=== PATIENT | female | born 1995 | race African-American/Black ===

== ENCOUNTER 2017-10-04 10:19 | Emergency (ER) | payer OTHER ==
[2017-10-04 11:10] LABS: #Lymphocytes 2.3 thou/uL (1.20-3.40); #Monocytes 0.4 thou/uL (0.11-0.59); #Neutrophils 4.5 thou/uL (1.40-6.50); %Basophils 0.5 % (0.0-1.0); %Eosinophils 0.6 % (0.0-10.0); %Lymphocytes 31.6 % (21.0-51.0); %Monocytes 5.9 % (0.0-10.0); %Neutrophils 61.4 % (42.0-75.0); Hemoglobin 13.1 g/dL (12.0-16.0); Mean Corpuscular HGB CONC 32.7 g/dL (32.0-36.0); Mean Corpuscular Volume 88.5 fL (78.0-98.0); Mean Platelet Volume 6.7 fL (7.4-10.4); Platelet Count 297 thou/uL (130-400); RBC Distribution Width 12.7 % (11.5-14.5); Red Blood Cell (RBC) Count 4.53 mill/uL (4.20-5.40); White Blood Cell (WBC) Count 7.3 thou/uL (4.8-10.8)
--- NOTE | 2017-10-08 10:58 | EKG ---
Test Reason : SYNCOPE Blood Pressure : / mmHG Vent. Rate : 079 BPM Atrial Rate : 079 BPM P-R Int : 150 ms QRS Dur : 086 ms QT Int : 358 ms P-R-T Axes : 077 069 033 degrees QTc Int : 410 ms Normal sinus rhythm Normal ECG Confirmed by LEATHA LAMAR DO ([id number]), editorial writer RHONDA BERGER ([id number]) on 10/08/2017 10:58:03 AM Referred By: SHARI Confirmed By:LEATHA LAMAR DO
== END 2017-10-04 12:17 | disposition home or self-care (01) ==
LOC: ERS 10:19
DX: R55 Syncope and collapse (principal)
CPT/HCPCS: 36415; 85025; 93005

== ENCOUNTER 2019-01-23 22:13 | Emergency (ER) | payer OTHER, SELFPAY | END 2019-01-23 23:14 | disposition home or self-care (01) | LOC: ERS 22:13 | DX: R59.9 Enlarged lymph nodes, unspecified (principal); F41.9 Anxiety disorder, unspecified; F17.210 Nicotine dependence, cigarettes, uncomplicated | CPT/HCPCS: 99283 ==

== ENCOUNTER 2019-01-29 07:26 | Inpatient (IN) | payer OTHER ==
[2019-01-29 08:15] LABS: #Basophils 0.1 thou/uL (0.0-0.2); #Lymphocytes 1.6 thou/uL (1.20-3.40); #Monocytes 1.3 thou/uL (0.11-0.59); #Neutrophils 6.9 thou/uL (1.40-6.50); %Basophils 0.5 % (0.0-1.0); %Eosinophils 0.4 % (0.0-10.0); %Lymphocytes 16.1 % (21.0-51.0); Hemoglobin 15.6 g/dL (12.0-16.0); Mean Corpuscular HGB CONC 31.2 g/dL (32.0-36.0); Mean Corpuscular Hemoglobin 27.4 pg (27.0-31.0); Mean Platelet Volume 7.2 fL (7.4-10.4); Platelet Count 264 thou/uL (130-400); RBC Distribution Width 14.7 % (11.5-14.5); Red Blood Cell (RBC) Count 5.67 mill/uL (4.20-5.40); White Blood Cell (WBC) Count 9.8 thou/uL (4.8-10.8)
[2019-01-29 08:27] LABS: ALT (SGPT) 47 U/L (8-55); AST (SGOT) 78 U/L (5-34); Albumin 4.9 g/dL (3.5-5.0); Alkaline Phosphatase 61 U/L (40-110); Anion Gap 22 mmol/L (10-20); BUN (Urea Nitrogen) 13 mg/dL (7.0-18.7); Bilirubin, Total 0.9 mg/dL (0.2-1.2); Calc. Creatinine Clearance 0 mL/min (70-130); Calcium 10.4 mg/dL (7.8-10.44); Carbon Dioxide 15 mmol/L (22-29); Chloride 99 mmol/L (98-107); Estimated GFR-MDRD 51; Globulin 4.1 g/dL (2.4-3.5); Glucose 91 mg/dL (70-105); Potassium 4.3 mmol/L (3.5-5.1); Sodium 132 mmol/L (136-145)
[2019-01-29 08:40] LABS: Lipase 2846 U/L (8-78)
[2019-01-29] MEDS ORDERED: Morphine 2 MG/ML SYRINGE ONE (08:50)
[2019-01-29] MEDS ORDERED: Ondansetron PF 4 MG/2 ML Vial ONE ×2 (08:51→15:08)
[2019-01-29] MEDS ORDERED: Sodium Chloride 0.9% 1,000 ML IV SCH (09:00)
[2019-01-29] MEDS ORDERED: Morphine 2 MG/ML SYRINGE SLOW IVP SCH (09:00)
[2019-01-29] MEDS ORDERED: Ondansetron PF 4 MG/2 ML Vial SLOW IVP SCH (09:00)
--- NOTE | 2019-01-29 09:24 | ULT ---
Sonogram right upper quadrant HISTORY: Right upper quadrant pain. FINDINGS: Gallbladder has a normal appearance without evidence of stones. Common duct is 0.2 cm. Live r unremarkable without focal mass or intrahepatic biliary dilatation. No free fluid. IMPRESSION: Normal exam.
[2019-01-29 10:13] LABS: BHCG - Serum Negative (NEGATIVE); Pregs Control Background? CLEAR/WHITE (CLR/WHITE); Pregs Control Bar Appear? YES (CONTROL BAR)
[2019-01-29] MEDS ORDERED: Iopamidol-370 76% 500 ML 1 ML ONE (11:04)
--- NOTE | 2019-01-29 11:05 | CT ---
CT Abdomen Pelvis W Con History: Back pain shortness of breath and vomiting Comparison: Gallbladder ultrasound same day Findings: Lung bases are clear. No pericardial effusion. There is acute edematous pancreatitis with interstitial edema, edema surrounding the pancreatic tail body uncinate process and head. No abnormal nonenhancing focus. No fluid collection. There are mildly prominent left gastric lymph nodes. Likely mild hyperemia within the peripancreatic venous ple xus and much less likely foci of hemorrhage anterior to the IVC. There is hyperemia of the perisplenic and perigastric venous plexus which also may be sequelae of the timing of contrast as the re is extensive contrast in the hepatic veins. No hydronephrosis. No pericholecystic edema. Moderate free fluid in the pelvis. No dilated loops of large or small bowel. The appendix is visualized and is normal. Impression: Uncomplicated acute edematous pancreatitis without necrosis.
[2019-01-29] MEDS ORDERED: Morphine 4 MG/ML VIAL ONE ×2 (11:29→15:06)
[2019-01-29 11:49] LABS: Bilirubin 1+ (Negative); Blood, Urine Negative (Negative); Clarity Clear (Clear); Glucose, Urine (Dipstick) Normal (Negative); Leukocyte Negative Leu/uL (Negative); Nitrite Negative (Negative); Protein, Urine (Dipstick) 300 mg/dL (Neg-Trace)
[2019-01-29 12:06] LABS: Bacteria/HPF 1+ HPF (None Seen)
[2019-01-29] MEDS ORDERED: Acetaminophen 325 MG TAB PO PRN (13:54)
[2019-01-29] MEDS ORDERED: Ondansetron PF 4 MG/2 ML Vial IVP PRN (13:54)
[2019-01-29] MEDS ORDERED: Morphine 2 MG/ML SYRINGE SLOW IVP PRN (13:55)
[2019-01-29] MEDS: Sodium Chloride 0.9% 1,000 ML IV SCH ×2 (15:30→19:51)
[2019-01-29 16:49] VITALS: BMI 23.9
--- NOTE | 2019-01-29 18:08 | HP ---
REASON FOR ADMISSION: Acute pancreatitis. HISTORY OF PRESENTING ILLNESS: The patient gives history of severe nausea and vomiting from last 2 days. She also had abdominal pain, which was bandlike in the upper quadrants with radiation to the back from last 3 days. This pain was constant, 6/10 to 7/10 in intensity. Her last bowel movement was on Tuesday morning, which appeared normal. She also developed shortness of breath on exertion from yesterday. No fever. She has had loss of appetite and has not been eating or drinking from last 24 hours now. No prior history of pancreatic issue. No history of sickle cell anemia or trait. No history of dyslipidemia. PAST MEDICAL AND SURGICAL HISTORY: 1. History of anemia due to childbirth. 2. x2. 3. Tubal ligation. 4. Tonsillectomy. CURRENT MEDICATIONS: None. ALLERGIES: NO KNOWN DRUG ALLERGIES. PERSONAL HISTORY: Smokes occasional cigarettes, likely 1 cigarette every 2 to 3 days if she is with her friends. Drinks a mixed drinks of 3 to 4 on a weekend once a month with her friends. Does not abuse drugs. Has a 2-year-old and 5-year- old child. FAMILY HISTORY: Mother is living and has history of hypertension. She does not know much about her father. Has a younger brother who is healthy. No history of pancreatic cancer in the family. CODE STATUS: Full. REVIEW OF SYSTEMS: CONSTITUTIONAL: Negative for weight loss or gain, ability to conduct usual activities. SKIN: Negative for rash, itching. EYES: Negative for double vision, pain. ENT/MOUTH: Negative for nose bleeding, neck stiffness, pain, tenderness. CARDIOVASCULAR: Negative for palpitations, dyspnea on exertion, orthopnea. RESPIRATORY: Negative for wheezing, cough, hemoptysis, fever or night sweats. GASTROINTESTINAL: Negative for heartburn, constipation, or diarrhea. GENITOURINARY: Negative for urgency, frequency, dysuria, nocturia. MUSCULOSKELETAL: Negative for pain, swelling. NEUROLOGIC/PSYCHIATRIC: Negative for anxiety, depression. ALLERGY/IMMUNOLOGIC: Negative for skin rash, bleeding tendency. PHYSICAL EXAMINATION: GENERAL: The patient is a 23-year-old female, who is currently not in any acute distress. VITAL SIGNS: Blood pressure 150/86, pulse 140 per minute, respiratory rate 22 per minute, temperature 98.4 degrees Fahrenheit, and saturating 99% on room air. NECK: Supple. No elevated JVD. HEENT: Eyes; extraocular muscles intact. Pupils reacting to light. Oral cavity, mucous membranes are dry. No exudates or congestion. CARDIOVASCULAR SYSTEM: S1 and S2 heard, regular rhythm. RESPIRATORY SYSTEM: Air entry 2+ bilateral. No rales or rhonchi. ABDOMEN: Soft. There is mild tenderness in the upper quadrants. No rigidity or guarding. Bowel sounds are heard. EXTREMITIES: No peripheral edema or calf tenderness. VASCULAR SYSTEM: Peripheral pulses 1+ bilateral. No ischemic ulcerations or gangrene. CENTRAL NERVOUS SYSTEM: No gross focal deficits noted. The patient is alert, awake, oriented well. PSYCHIATRIC SYSTEM: The patient's mood is euthymic. No hallucinations or delusions. LABORATORY DATA: CT of the abdomen and pelvis with contrast done showed uncomplicated acute edematous pancreatitis without necrosis. No hydronephrosis or pericholecystic edema was seen. Moderate free fluid is seen in the pelvis. No dilated loops of large or small bowel seen. Appendix was normal. Ultrasound of right upper quadrant done, showed gallbladder to have normal appearance without evidence of stones, common duct was 0.2 cm. Liver was unremarkable without mass or intrahepatic biliary dilatation. Serum test was negative. Lipase 2846, LDH 243, CRP 1.47, albumin 4.9, triglycerides were 81, sodium 132, serum bicarb 15, BUN 13, creatinine 1.5, serum glucose 91, total bilirubin 0.9, AST 78, ALT 47, and alkaline phosphatase 61. White count of 9.8, hemoglobin and hematocrit 15 and 49, platelet count 264, MCV is 88 with 70% neutrophils. EKG done shows sinus tach at 109 beats per minute. CLINICAL IMPRESSION AND PLAN: The patient will be admitted to medical floor for acute pancreatitis with unclear etiology at present. She is severely dehydrated and the patient will be placed on normal saline at 200 mL per hour. She has received 30 ml/kg of IV fluid in the ER. Morphine p.r.n. for pain. We will consult Dr. Giuseppe Marques, who is on-call for Gastroenterology. JULI with reflex will be done as well in view of cryptic pancreatitis. We will continue to closely monitor her on medical floor. Job ID: [id number] [facility]
[2019-01-29] MEDS: Famotidine 20 MG TAB PO SCH (19:51)
--- NOTE | 2019-01-29 21:34 | CON ---
DATE OF CONSULTATION: 01/29/2019 REQUESTING PHYSICIAN: Dr. Camarillo. REASON FOR CONSULTATION: Acute pancreatitis. HISTORY OF PRESENT ILLNESS: Solange Mendoza is a very pleasant 23-year-old woman with no significant past medical history. She reports that she will drink alcohol socially on occasion. About every other week, she will have several alcoholic beverages. Her last alcohol intake was 5 days ago when she had 3 or 4 mixed beverages. Couple of days after that she started having some shortness of breath and sharp pain in both the epigastrium and at the back. This quickly progressed to involve nausea and vomiting. Over the past several days with any oral intake of food or liquid, she has had nonbloody emesis. The pain has persisted. There has been no fever. Her bowel movements have been normal. She has never had symptoms like this before. She presented to the emergency department today and was found to have elevation in lipase to [address] of the abdomen, which demonstrated acute edematous pancreatitis. The patient reports no prior history or family history of pancreatitis. She has never had any issues with the gallbladder. Abdominal ultrasound imaging did not show any gallstones. The patient is being admitted to the hospital for treatment of pancreatitis. REVIEW OF SYSTEMS: Full review of systems including constitutional, head, eyes, ears, nose, throat, GI, , cardiovascular, respiratory, musculoskeletal, neurologic systems is negative except as noted in the HPI. PAST MEDICAL HISTORY: x2, tonsillectomy. ALLERGIES: NO KNOWN DRUG ALLERGIES. OUTPATIENT MEDICATIONS: None. FAMILY HISTORY: Negative for pancreatitis. SOCIAL HISTORY: The patient will occasionally smoke a cigarette maybe every other day. She will have a few alcoholic beverages maybe every other weekend. Last alcohol intake was 5 days ago when she had 3 or 4 mixed drinks. No current drug abuse. PHYSICAL EXAMINATION: VITAL SIGNS: Blood pressure 121/93, pulse 100, 100% oxygen saturation on room air. GENERAL: A 23-year-old woman, sitting up in bed comfortably, in no acute distress. SKIN: No jaundice, no rashes were palpable. EYES: No scleral icterus. Extraocular movements intact. ENT: Mucous membranes moist. No oral lesions. LYMPH: No submandibular supraclavicular lymphadenopathy. Thyroid nontender to palpation. HEART: Regular borderline tachycardia. No murmur appreciated. LUNGS: Clear to auscultation bilaterally. ABDOMEN: Nondistended. Bowel sounds are hypoactive, but present. The abdomen is soft tender to palpation in the epigastrium. No guarding or rebound tenderness. EXTREMITIES: No peripheral edema. VESSELS: Radial pulses 2+ bilaterally. NEUROLOGIC: Cranial nerves 2-12 intact bilaterally. No focal deficits. LABORATORY STUDIES: WBC 9.8, hemoglobin 15.6, hematocrit 49.9, platelets 264. Sodium 132, potassium 4.3, BUN 13, creatinine 1.52. CRP is pending. Total bilirubin 0.9, alkaline phosphatase 61, AST 78, ALT 47, albumin 4.9. Urinalysis shows 7 to 10 wbc's. Lipase is elevated to 2846, triglycerides normal at 81. Serum test is negative. IMAGING STUDIES: Abdominal ultrasound is a normal exam. Gallbladder appears normal with no evidence of stones. CBD is normal at [address] of the abdomen and pelvis demonstrates uncomplicated acute edematous pancreatitis. There is no evidence of necrosis. No fluid collection. No bowel dilation. No pericholecystic edema. No hydronephrosis. ASSESSMENT/PLAN: 1. Acute pancreatitis, likely secondary to alcohol. 2. Nausea and vomiting, secondary to pancreatitis. 3. Epigastric pain, secondary to pancreatitis. The patient's presentation is consistent with acute uncomplicated pancreatitis. This is likely secondary to alcohol. There is no evidence of biliary etiology, triglycerides are normal. She does not take any medications that would be a culprit. I agree with supportive care as already planned, antiemetics and analgesics as needed, IV fluids at 200 mL/hour overnight. We would trend CBC and CMP tomorrow. I would keep her n.p.o. for now. I discussed with the patient. She is going to need to avoid alcohol going forward. Thank you for this consultation. Please call anytime with questions or concerns. Job ID: [id number]
[2019-01-30] MEDS: Sodium Chloride 0.9% 1,000 ML IV SCH ×5 (00:07→21:36)
[2019-01-30 06:26] LABS: #Basophils 0.1 thou/uL (0.0-0.2); #Eosinphils 0.1 thou/uL (0.0-0.7); #Lymphocytes 1.2 thou/uL (1.20-3.40); #Monocytes 0.8 thou/uL (0.11-0.59); #Neutrophils 3.8 thou/uL (1.40-6.50); %Basophils 0.9 % (0.0-1.0); %Eosinophils 1.3 % (0.0-10.0); %Lymphocytes 19.7 % (21.0-51.0); %Monocytes 13.8 % (0.0-10.0); %Neutrophils 64.3 % (42.0-75.0); Hemoglobin 11.2 g/dL (12.0-16.0); Mean Corpuscular HGB CONC 31.4 g/dL (32.0-36.0); Mean Corpuscular Hemoglobin 27.6 pg (27.0-31.0); Mean Corpuscular Volume 88.1 fL (78.0-98.0); Mean Platelet Volume 7.1 fL (7.4-10.4); Platelet Count 183 thou/uL (130-400); RBC Distribution Width 14.6 % (11.5-14.5); Red Blood Cell (RBC) Count 4.06 mill/uL (4.20-5.40); White Blood Cell (WBC) Count 5.9 thou/uL (4.8-10.8)
[2019-01-30 07:10] LABS: ALT (SGPT) 25 U/L (8-55); AST (SGOT) 41 U/L (5-34); Albumin 3.2 g/dL (3.5-5.0); Alkaline Phosphatase 38 U/L (40-110); Anion Gap 15 mmol/L (10-20); BUN (Urea Nitrogen) 6 mg/dL (7.0-18.7); Bilirubin, Total 0.7 mg/dL (0.2-1.2); Calc. Creatinine Clearance 121 mL/min (70-130); Calcium 8.3 mg/dL (7.8-10.44); Carbon Dioxide 17 mmol/L (22-29); Cardiac Risk 3.7 (Less than 4.5); Chloride 109 mmol/L (98-107); Cholesterol 148 mg/dl (< 200 Desired); Estimated GFR-MDRD Greater than 90; Globulin 2.7 g/dL (2.4-3.5); Glucose 67 mg/dL (70-105); HDL Cholesterol 40 mg/dL (>60 Neg Risk); LDL Cholesterol, Calculated 94 mg/dL; Potassium 3.8 mmol/L (3.5-5.1); Protein, Total 5.9 g/dL (6.0-8.3); Sodium 137 mmol/L (136-145); Triglycerides 69 mg/dL (Less than 150)
[2019-01-30 07:12] LABS: Lipase 2685 U/L (8-78)
[2019-01-30] MEDS: HYDROcodone/Acetaminophen 5/325 mg Tablet PO PRN ×3 (07:19→21:35)
[2019-01-30] MEDS: Enoxaparin Sodium 40 MG/0.4 ML SYRINGE SC SCH (08:05)
[2019-01-30] MEDS: Famotidine 20 MG TAB PO SCH ×2 (08:05→20:09)
[2019-01-30 11:16] LABS: ANA Symphony (Qualitative) Negative (Negative); ANA Symphony (Quantitative) 0.1 Ratio (< 0.7 Negative); dsDNA IgG Antibody Less than 0.5 IU/mL (<10 Negative)
--- NOTE | 2019-01-30 14:19 | PRG ---
DATE OF SERVICE: 01/30/2019 SUBJECTIVE: The patient is feeling a little bit better today. Epigastric pain persists. She did require morphine and then hydrocodone overnight. There has been no nausea or vomiting. Not requiring any antiemetics. She has good urine output. She has been up and ambulating some today. OBJECTIVE: VITAL SIGNS: Temperature 98.6, pulse 72, blood pressure 126/87, and 100% oxygen saturation on room air. GENERAL: No acute distress. HEART: Regular rate and rhythm. LUNGS: Clear to auscultation bilaterally. ABDOMEN: Bowel sounds are hypoactive, but present. Soft and tender to palpation in the epigastrium, but no guarding or rebound tenderness. EXTREMITIES: No peripheral edema. LABORATORY STUDIES: JULI is negative. Sodium 137, potassium 3.8, BUN 6, creatinine down from 1.52 to 0.74, glucose 67, total bilirubin 0.7, alkaline phosphatase 38, AST down to 41, and ALT 25. CRP was 1.47. Triglycerides 69. Lipase 2685. WBC is 5.9, hemoglobin is 11.2, and hematocrit down from 49.9 to 35.8. ASSESSMENT AND PLAN: 1. Acute pancreatitis, probably secondary to alcohol. 2. Nausea and vomiting, improved. 3. Epigastric pain, improving. 4. Dehydration, improved. I discussed with the patient that her lab parameters are all favorable. She is being adequately resuscitated. Given her continued pain medication requirements, I would keep her n.p.o. for the remainder of the day, see how she does overnight. If she is doing well, pain requirements decreased, and feeling hungry, could hopefully try to introduce clear liquids tomorrow. Job ID: [id number]
--- NOTE | 2019-01-30 16:00 | PDOC.HOSPP ---
- Subjective Encounter Date: 01/30/19 Encounter Time: 09:00 Subjective: abdominal pain is better, no nausea this am is amb in room, no sob - Objective Vital Signs & Weight: Vital Signs (12 hours) Temp Pulse Resp BP Pulse Ox 01/30/19 11:27 98.6 F 72 16 126/87 100 01/30/19 07:15 98.6 F 81 20 130/82 99 01/30/19 03:59 98.1 F 79 19 115/79 99 Weight Admit Weight 144 lb Weight 144 lb Result Diagrams: 01/30/19 05:50 01/30/19 05:50 Hospitalist ROS - Medication Medications: Active Medications Generic Name Dose Route Start Last Admin Trade Name Freq PRN Reason Stop Dose Admin Hydrocodone Bitart/Acetaminophen 1 tab 01/29/19 13:54 01/30/19 07:19 [place] 5/325 PO 1 tab Q4H PRN Administration Moderate Pain (4-6) Enoxaparin Sodium 40 mg 01/30/19 09:00 01/30/19 08:05 Lovenox SC 40 mg 0900 HEIKE Administration Famotidine 20 mg 01/29/19 21:00 01/30/19 08:05 Pepcid PO 20 mg BID HEIKE Administration Sodium Chloride 1,000 mls @ 200 mls/hr 01/29/19 14:00 01/30/19 11:16 Normal Saline 0.9% IV 1,000 mls .Q5H HEIKE Administration Morphine Sulfate 2 mg 01/29/19 13:55 01/30/19 00:06 Morphine SLOW IVP 2 mg Q4H PRN Administration Severe Pain (7-10) - Exam General Appearance: awake alert Eye: PERRL, anicteric sclera ENT: no oropharyngeal lesions, moist mucosa Neck: supple, no JVD Heart: RRR, no murmur Respiratory: no wheezes, no rales Gastrointestinal: soft, non-distended, normal bowel sounds, no guarding, no rigidity Extremities: no cyanosis, no edema Neurological: cranial nerve grossly intact, no focal deficits Psychiatric: normal affect, A&O x 3 Hosp A/P (1) Acute pancreatitis Code(s): K85.90 - ACUTE PANCREATITIS WITHOUT NECROSIS OR INFECTION, UNSP Status: Acute Qualifiers: Pancreatitis type: unspecified pancreatitis type (2) Chronic anemia Code(s): D64.9 - ANEMIA, UNSPECIFIED Status: Chronic (3) Metabolic acidosis Code(s): E87.2 - ACIDOSIS Status: Acute - Plan continue iv hydration morphine, narco prn jesus is -ve, lipid profile is normal is npo, diet per GI advice hemostable has mild metabolic acidosis
[2019-01-30] MEDS: Ciprofloxacin 500 MG TAB PO SCH (20:09)
[2019-01-31] MEDS: Sodium Chloride 0.9% 1,000 ML IV SCH ×2 (02:40→06:37)
[2019-01-31] MEDS: Ciprofloxacin 500 MG TAB PO SCH ×2 (06:36→20:34)
[2019-01-31 06:44] LABS: #Basophils 0.1 thou/uL (0.0-0.2); #Eosinphils 0.1 thou/uL (0.0-0.7); #Lymphocytes 1.5 thou/uL (1.20-3.40); #Monocytes 0.5 thou/uL (0.11-0.59); #Neutrophils 3.9 thou/uL (1.40-6.50); %Basophils 1.1 % (0.0-1.0); %Eosinophils 0.8 % (0.0-10.0); %Lymphocytes 25.2 % (21.0-51.0); %Neutrophils 64.9 % (42.0-75.0); Hemoglobin 11.1 g/dL (12.0-16.0); Mean Corpuscular HGB CONC 31.6 g/dL (32.0-36.0); Mean Corpuscular Hemoglobin 27.8 pg (27.0-31.0); Mean Platelet Volume 6.8 fL (7.4-10.4); Platelet Count 186 thou/uL (130-400); RBC Distribution Width 14.5 % (11.5-14.5); Red Blood Cell (RBC) Count 4.01 mill/uL (4.20-5.40); White Blood Cell (WBC) Count 6.1 thou/uL (4.8-10.8)
[2019-01-31 07:04] LABS: ALT (SGPT) 26 U/L (8-55); AST (SGOT) 44 U/L (5-34); Albumin 3.6 g/dL (3.5-5.0); Alkaline Phosphatase 40 U/L (40-110); Anion Gap 16 mmol/L (10-20); BUN (Urea Nitrogen) Less than 4 mg/dL (7.0-18.7); Bilirubin, Total 0.8 mg/dL (0.2-1.2); Calc. Creatinine Clearance 147 mL/min (70-130); Calcium 8.4 mg/dL (7.8-10.44); Carbon Dioxide 16 mmol/L (22-29); Chloride 105 mmol/L (98-107); Estimated GFR-MDRD Greater than 90; Globulin 2.9 g/dL (2.4-3.5); Protein, Total 6.5 g/dL (6.0-8.3); Sodium 134 mmol/L (136-145)
[2019-01-31 07:11] LABS: Glucose 54 mg/dL (70-105); Potassium 2.9 mmol/L (3.5-5.1)
[2019-01-31] MEDS: Famotidine 20 MG TAB PO SCH ×2 (08:17→20:34)
[2019-01-31] MEDS: Enoxaparin Sodium 40 MG/0.4 ML SYRINGE SC SCH (08:17)
[2019-01-31] MEDS: Dextrose 5 % And 0.9 % NaCl 1,000 ML IV SCH ×4 (08:17→23:10)
[2019-01-31] MEDS: Potassium Chloride 20 MEQ TAB PO SCH ×3 (09:52→20:34)
--- NOTE | 2019-01-31 13:35 | PDOC.HOSPP ---
- Subjective Encounter Date: 01/31/19 Encounter Time: 09:15 Subjective: no abd pain or nausea feels beter - Objective Vital Signs & Weight: Vital Signs (12 hours) Temp Pulse Resp BP Pulse Ox 01/31/19 11:46 98.7 F 80 17 129/88 99 01/31/19 07:39 100 01/31/19 07:12 98.8 F 76 17 129/87 100 01/31/19 03:56 98.6 F 83 19 138/89 99 Weight Admit Weight 144 lb Weight 144 lb I&O: 01/30/19 01/31/19 02/01/19 06:59 06:59 06:59 Intake Total 2450 Balance 2450 Result Diagrams: 01/31/19 06:24 01/31/19 06:24 Hospitalist ROS - Medication Medications: Active Medications Generic Name Dose Route Start Last Admin Trade Name Freq PRN Reason Stop Dose Admin Hydrocodone Bitart/Acetaminophen 1 tab 01/29/19 13:54 01/30/19 21:35 [place] 5/325 PO 1 tab Q4H PRN Administration Moderate Pain (4-6) Ciprofloxacin 500 mg 01/30/19 20:00 01/31/19 06:36 Cipro PO 500 mg 0600,2000 HEIKE Administration Enoxaparin Sodium 40 mg 01/30/19 09:00 01/31/19 08:17 Lovenox SC 40 mg 0900 HEIKE Administration Famotidine 20 mg 01/29/19 21:00 01/31/19 08:17 Pepcid PO 20 mg BID HEIKE Administration Dextrose/Sodium Chloride 1,000 mls @ 200 mls/hr 01/31/19 07:45 01/31/19 13:21 D5 0.9% Ns IV 1,000 mls .Q5H HEIKE Administration Morphine Sulfate 2 mg 01/29/19 13:55 01/30/19 00:06 Morphine SLOW IVP 2 mg Q4H PRN Administration Severe Pain (7-10) Potassium Chloride 40 meq 01/31/19 09:30 01/31/19 09:52 K-Dur PO 02/01/19 15:31 40 meq Q6H HEIKE Administration - Exam General Appearance: awake alert Eye: PERRL, anicteric sclera ENT: no oropharyngeal lesions, moist mucosa Neck: supple, no JVD Heart: RRR, no murmur Respiratory: no wheezes, no rales Gastrointestinal: soft, non-tender, non-distended, normal bowel sounds, no guarding, no rigidity Extremities: no cyanosis, no edema Neurological: cranial nerve grossly intact, no focal deficits Psychiatric: normal affect, A&O x 3 Hosp A/P (1) Acute pancreatitis Code(s): K85.90 - ACUTE PANCREATITIS WITHOUT NECROSIS OR INFECTION, UNSP Status: Acute Qualifiers: Pancreatitis type: unspecified pancreatitis type (2) Chronic anemia Code(s): D64.9 - ANEMIA, UNSPECIFIED Status: Chronic (3) Metabolic acidosis Code(s): E87.2 - ACIDOSIS Status: Acute (4) Hypokalemia Code(s): E87.6 - HYPOKALEMIA Status: Acute (5) Hypomagnesemia Code(s): E83.42 - HYPOMAGNESEMIA Status: Acute - Plan continue iv hydration with D5NS due to hypoglycemia this am morphine, narco prn jesus is -ve, lipid profile is normal full liq diet hemostable has mild metabolic acidosis correct electrolytes
--- NOTE | 2019-01-31 18:09 | PRG ---
DATE OF SERVICE: 01/31/2019 SUBJECTIVE: This patient is feeling a lot better today. Abdominal discomfort is nearly resolved. She still has a bit of epigastric fullness, but she is tolerating her full liquid diet today. She has had apple juice and Jell-O with no problems. No nausea or vomiting. She has been passing gas. She has not required any analgesics today. Several electrolyte abnormalities are being replaced. OBJECTIVE: VITAL SIGNS: Temperature 98.6, pulse 91, blood pressure 126/86, and 98% oxygen saturation on room air. GENERAL: No acute distress. HEART: Regular rate and rhythm. LUNGS: Clear to auscultation bilaterally. ABDOMEN: Nondistended. Bowel sounds are present throughout all 4 quadrants. Soft and nontender to palpation. EXTREMITIES: No peripheral edema. LABORATORY STUDIES: WBC 6.1, hemoglobin 11.1, platelets 186. Sodium 134, potassium 2.9, BUN less than 4, creatinine 0.61, glucose 5.4, magnesium 1.3. Total bilirubin 0.8, alkaline phosphatase 40, AST 44, and ALT 26. ASSESSMENT AND PLAN: 1. Acute pancreatitis, likely secondary to alcohol, clinically improving. 2. Nausea and vomiting, resolved. 3. Epigastric pain, improved. 4. Dehydration, resolved. Clinically, her pancreatitis is resolving. She is doing well on a full liquid diet today. I would advise that if she has a good night tonight, she will be given a regular diet for breakfast. If she does well with this, then I see no contraindication to hospital discharge tomorrow. I have advised her to just avoid alcohol going forward. GI will sign off, but please call back anytime with questions or concerns. Job ID: [id number]
[2019-01-31] MEDS: Magnesium Oxide 400 MG TAB PO SCH (20:34)
[2019-01-31] MEDS: HYDROcodone/Acetaminophen 5/325 mg Tablet PO PRN (20:36)
[2019-02-01] MEDS: Potassium Chloride 20 MEQ TAB PO SCH ×3 (03:58→12:13)
[2019-02-01] MEDS: Dextrose 5 % And 0.9 % NaCl 1,000 ML IV SCH ×2 (03:59→08:56)
[2019-02-01] MEDS: Ciprofloxacin 500 MG TAB PO SCH ×2 (05:45→20:50)
[2019-02-01 06:36] LABS: #Lymphocytes 1.6 thou/uL (1.20-3.40); #Monocytes 0.6 thou/uL (0.11-0.59); #Neutrophils 2.9 thou/uL (1.40-6.50); %Basophils 0.6 % (0.0-1.0); %Eosinophils 0.9 % (0.0-10.0); %Lymphocytes 30.5 % (21.0-51.0); Hemoglobin 11.3 g/dL (12.0-16.0); Mean Corpuscular HGB CONC 32.5 g/dL (32.0-36.0); Mean Corpuscular Volume 86.3 fL (78.0-98.0); Mean Platelet Volume 6.7 fL (7.4-10.4); Platelet Count 223 thou/uL (130-400); RBC Distribution Width 14.5 % (11.5-14.5); Red Blood Cell (RBC) Count 4.03 mill/uL (4.20-5.40); White Blood Cell (WBC) Count 5.1 thou/uL (4.8-10.8)
[2019-02-01 07:21] LABS: ALT (SGPT) 25 U/L (8-55); AST (SGOT) 43 U/L (5-34); Albumin 3.6 g/dL (3.5-5.0); Alkaline Phosphatase 40 U/L (40-110); Anion Gap 10 mmol/L (10-20); BUN (Urea Nitrogen) Less than 4 mg/dL (7.0-18.7); Bilirubin, Total 0.5 mg/dL (0.2-1.2); Calc. Creatinine Clearance 149 mL/min (70-130); Calcium 8.7 mg/dL (7.8-10.44); Carbon Dioxide 22 mmol/L (22-29); Chloride 105 mmol/L (98-107); Estimated GFR-MDRD Greater than 90; Globulin 2.9 g/dL (2.4-3.5); Glucose 115 mg/dL (70-105); Magnesium 1.2 mg/dL (1.6-2.6); Potassium 3.7 mmol/L (3.5-5.1); Protein, Total 6.5 g/dL (6.0-8.3); Sodium 133 mmol/L (136-145)
[2019-02-01] MEDS: Famotidine 20 MG TAB PO SCH ×2 (08:47→20:50)
[2019-02-01] MEDS: Magnesium Oxide 400 MG TAB PO SCH ×2 (08:47→20:50)
[2019-02-01] MEDS: Enoxaparin Sodium 40 MG/0.4 ML SYRINGE SC SCH (08:48)
--- NOTE | 2019-02-01 12:03 | PDOC.HOSPP ---
- Subjective Encounter Date: 02/01/19 Encounter Time: 08:50 Subjective: no abd pain or nausea is tolerating solid diet no bm yet - Objective Vital Signs & Weight: Vital Signs (12 hours) Temp Pulse Resp BP Pulse Ox 02/01/19 07:23 98.3 F 81 17 127/91 H 100 Weight Admit Weight 144 lb Weight 144 lb I&O: 01/31/19 02/01/19 02/02/19 06:59 06:59 06:59 Intake Total 2450 3394 Balance 2450 3394 Result Diagrams: 02/01/19 06:28 02/01/19 06:28 Hospitalist ROS - Medication Medications: Active Medications Generic Name Dose Route Start Last Admin Trade Name Freq PRN Reason Stop Dose Admin Hydrocodone Bitart/Acetaminophen 1 tab 01/29/19 13:54 01/31/19 20:36 [place] 5/325 PO 1 tab Q4H PRN Administration Moderate Pain (4-6) Ciprofloxacin 500 mg 01/30/19 20:00 02/01/19 05:45 Cipro PO 500 mg 06,1999 HEIKE Administration Enoxaparin Sodium 40 mg 01/30/19 09:00 02/01/19 08:48 Lovenox SC 40 mg 0900 HEIKE Administration Famotidine 20 mg 01/29/19 21:00 02/01/19 08:47 Pepcid PO 20 mg BID HEIKE Administration Magnesium Oxide 400 mg 01/31/19 21:00 02/01/19 08:47 Magnesium Oxide PO 400 mg BID HEIKE Administration Morphine Sulfate 2 mg 01/29/19 13:55 01/30/19 00:06 Morphine SLOW IVP 2 mg Q4H PRN Administration Severe Pain (7-10) Potassium Chloride 40 meq 01/31/19 09:30 02/01/19 08:46 K-Dur PO 02/01/19 15:31 40 meq Q6H HEIKE Administration - Exam General Appearance: awake alert Eye: PERRL, anicteric sclera ENT: no oropharyngeal lesions, moist mucosa Neck: supple, no JVD Heart: RRR, no murmur Respiratory: no wheezes, no rales Gastrointestinal: soft, non-tender, non-distended, normal bowel sounds Extremities: no cyanosis, no edema Neurological: cranial nerve grossly intact, no focal deficits Psychiatric: normal affect, A&O x 3 Hosp A/P (1) Acute pancreatitis Code(s): K85.90 - ACUTE PANCREATITIS WITHOUT NECROSIS OR INFECTION, UNSP Status: Acute Qualifiers: Pancreatitis type: unspecified pancreatitis type (2) Chronic anemia Code(s): D64.9 - ANEMIA, UNSPECIFIED Status: Chronic (3) Metabolic acidosis Code(s): E87.2 - ACIDOSIS Status: Resolved (4) Hypokalemia Code(s): E87.6 - HYPOKALEMIA Status: Resolved (5) Hypomagnesemia Code(s): E83.42 - HYPOMAGNESEMIA Status: Resolved - Plan continue iv hydration, has persistent elevation in lipase? morphine, narco prn jesus is -ve, lipid profile is normal full liq diet hemostable mild metabolic acidosis to ambulate in hallway
[2019-02-01] MEDS: Sodium Chloride 0.9% 1,000 ML IV SCH ×2 (12:18→22:34)
[2019-02-02] MEDS: Ciprofloxacin 500 MG TAB PO SCH (05:46)
[2019-02-02 07:59] VITALS: BP 141/90; TEMP 98.1
[2019-02-02] MEDS: Famotidine 20 MG TAB PO SCH (09:50)
[2019-02-02] MEDS: Enoxaparin Sodium 40 MG/0.4 ML SYRINGE SC SCH (09:50)
[2019-02-02] MEDS: Magnesium Oxide 400 MG TAB PO SCH (09:51)
[2019-02-02] MEDS: Sodium Chloride 0.9% 1,000 ML IV SCH (09:54)
--- NOTE | 2019-02-02 15:31 | DIS ---
DATE OF ADMISSION: 01/29/2019 DATE OF DISCHARGE: 02/02/2019 DISCHARGE DISPOSITION: Home. PRIMARY DISCHARGE DIAGNOSES: Acute pancreatitis, idiopathic etiology of questionable alcohol related, chronic anemia, metabolic acidosis, on arrival with hypokalemia, resolved, hypomagnesemia, resolved. PROCEDURES DONE DURING HOSPITALIZATION: CT of the abdomen and pelvis with contrast done showed no pericholecystic edema, moderate free fluid in the pelvis. No dilated loops of large or small bowel. There is acute edematous pancreatitis with interstitial edema and edema surrounding the pancreatic tail, body, uncinate process and head. No abnormally nonenhancing focus seen. No fluid collection was seen. Mild prominent left gastric lymph nodes were seen. There is no necrosis seen. Right upper quadrant ultrasound done showed gallbladder to be normal in appearance without evidence of stones. Common bile duct was 0.2 cm. Liver was unremarkable without focal mass or intrahepatic biliary dilatation. No free fluid was seen. H and H of 11 and 34, platelet count 223. BUN is 4, creatinine 0.6, total bilirubin 0.5, AST 41, ALT 25, alkaline phosphatase 38, albumin is 3.2. LDL 94, triglyceride 69. Serum test was negative. Lipase was 2846 on the day of admission. JULI was negative. DISCHARGE MEDICATIONS: Ciprofloxacin 500 mg p.o. twice daily for another 3 days for urinary tract infection. 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 Giuseppe Marques for Gastroenterology. DISCHARGE PLAN: The patient has an appointment at [facility] on 02/09/2019 at 8:00 a.m. She also needs lab work to be done on the same day, which includes CMP and lipase levels. BRIEF COURSE DURING HOSPITALIZATION: The patient initially came in with complaints of abdominal pain, nausea, and vomiting for 2 days. The patient had abdominal pain in the upper quadrants with radiation to the back for the last 3 days. Her initial clinical exam and CAT scan findings were consistent with acute pancreatitis. The patient admitted to drinking on the weekends with 2 to 3, sometimes 3 to 4 mixed drinks only on the weekends with friends once/twice a month. No other etiology was positive during her workup for pancreatitis. The patient was initially kept n.p.o. and was slowly weaned into solid fat free food prior to discharge. She has had consultation with Dr. Giuseppe Marques for Gastroenterology. Ms. Mendoza has had persistent elevation in her lipase and it is unclear the significance of this. She is currently pain free, tolerating oral solid diet, ambulating, having bowel movements and eating well prior to discharge. She has been cleared by Dr. Giuseppe Marques for discharge. Please note, I have seen and examined the patient on the day of discharge. Job ID: [id number] MTDD
== END 2019-02-02 12:35 | disposition home or self-care (01) | DRG 439 ==
LOC: ERS 07:26 → T4-A 11:56
PROVIDERS: ADMIT Internal Medicine; ATTEND Internal Medicine
DX: K85.00 Idiopathic acute pancreatitis without necrosis or infection (principal); E87.2 Acidosis; K85.20 Alcohol induced acute pancreatitis without necrosis or infection; F41.9 Anxiety disorder, unspecified; F17.210 Nicotine dependence, cigarettes, uncomplicated; D64.9 Anemia, unspecified; E86.0 Dehydration; E87.6 Hypokalemia; E83.42 Hypomagnesemia; E16.2 Hypoglycemia, unspecified; Z79.899 Other long term (current) drug therapy; Z98.51 Tubal ligation status
CPT/HCPCS: 36415; 74177; 76705; 80053; 80061; 81003; 81015; 83615; 83690; 83735; 84478; 84703; 85025; 86038; 86140; 86225; 87040; 87086; 93005; 96361; 96374; 96375; 96376; J1650; J2270; J2405; Q9967

== ENCOUNTER 2020-04-10 17:47 | Emergency (ER) | payer OTHER ==
[2020-04-10 18:49] LABS: #Basophils 0.1 thou/uL (0.0-0.2); #Lymphocytes 3.2 thou/uL (1.20-3.40); #Monocytes 0.6 thou/uL (0.11-0.59); #Neutrophils 3.1 thou/uL (1.40-6.50); %Basophils 1.3 % (0.0-1.0); %Eosinophils 0.4 % (0.0-10.0); %Lymphocytes 45.4 % (21.0-51.0); %Monocytes 8.7 % (0.0-10.0); %Neutrophils 44.1 % (42.0-75.0); Hemoglobin 13.6 g/dL (12.0-16.0); Mean Corpuscular HGB CONC 31.7 g/dL (32.0-36.0); Mean Corpuscular Volume 88.1 fL (78.0-98.0); Platelet Count 279 thou/uL (130-400); RBC Distribution Width 19.7 % (11.5-14.5); Red Blood Cell (RBC) Count 4.86 mill/uL (4.20-5.40); White Blood Cell (WBC) Count 7.1 thou/uL (4.8-10.8)
--- NOTE | 2020-04-10 19:07 | CT ---
CT head noncontrast HISTORY: Fall. Head injury. FINDINGS: There is no evidence of acute intracranial hemorrhage or infarct. The ventricles appear nor mal in size, shape and position. There is no mass effect or shift of midline structures. Visualized paranasal sinuses remain well-aerated. IMPRESSION : No abnormalities are demonstrated.
--- NOTE | 2020-04-10 19:10 | CT ---
CT cervical spine noncontrast HISTORY: Injury. FINDINGS: There is gentle reversal of the normal lordotic curvature. Vertebral body heights are maint ained. Cervicothoracic junction is intact. No acute fracture or dislocation. IMPRESSION : No abnormalities are demonstrated.
[2020-04-10 19:24] LABS: BHCG - Serum Negative (NEGATIVE); Pregs Control Background? CLEAR/WHITE (CLR/WHITE); Pregs Control Bar Appear? YES (CONTROL BAR)
[2020-04-10 19:45] LABS: Anion Gap 22 mmol/L (10-20); BUN (Urea Nitrogen) 6 mg/dL (7.0-18.7); Calc. Creatinine Clearance 0 mL/min (70-130); Calcium 8.8 mg/dL (7.8-10.44); Carbon Dioxide 23 mmol/L (22-29); Chloride 103 mmol/L (98-107); Glucose 81 mg/dL (70-105); Potassium 4.2 mmol/L (3.5-5.1); Sodium 144 mmol/L (136-145)
[2020-04-10 20:12] LABS: Bacteria/HPF None Seen HPF (None Seen); Bilirubin Negative (Negative); Blood, Urine 3+ (Negative); Clarity Clear (Clear); Glucose, Urine (Dipstick) Normal (Negative); Ketone, Urine Negative (Negative); Leukocyte Negative Leu/uL (Negative); Nitrite Negative (Negative); Protein, Urine (Dipstick) 10 mg/dL (Neg-Trace); RBC/HPF Greater than 50 HPF (0-3); Specific Gravity, Urine 1.007 (1.002-1.036); Squamous Epithelial 0-3 HPF (0-3); Urobilinogen Normal mg/dL (Less than 2); WBC/HPF 0-3 HPF (0-3); pH, Urine 6.5 (5.0-9.0)
== END 2020-04-10 20:07 | disposition home or self-care (01) ==
LOC: ERS 17:47
DX: S16.1XXA Strain of muscle, fascia and tendon at neck level, initial encounter (principal); S00.83XA Contusion of other part of head, initial encounter; R55 Syncope and collapse; D50.9 Iron deficiency anemia, unspecified; W22.8XXA Striking against or struck by other objects, initial encounter
CPT/HCPCS: 70450; 72125; 80048; 81003; 81015; 84703; 85025; 93005

== ENCOUNTER 2020-07-07 09:47 | Inpatient (IN) | payer OTHER ==
[2020-07-07 10:33] LABS: #Lymphocytes 1.3 thou/uL (1.20-3.40); #Monocytes 0.9 thou/uL (0.11-0.59); #Neutrophils 12.4 thou/uL (1.40-6.50); %Basophils 0.1 % (0.0-1.0); %Eosinophils 0.2 % (0.0-10.0); %Lymphocytes 8.7 % (21.0-51.0); %Monocytes 5.9 % (0.0-10.0); %Neutrophils 85.1 % (42.0-75.0); Hemoglobin 13.8 g/dL (12.0-16.0); Mean Corpuscular HGB CONC 32.1 g/dL (32.0-36.0); Mean Corpuscular Hemoglobin 29.2 pg (27.0-31.0); Mean Corpuscular Volume 91.3 fL (78.0-98.0); Mean Platelet Volume 7.3 fL (7.4-10.4); Platelet Count 341 thou/uL (130-400); RBC Distribution Width 15.8 % (11.5-14.5); Red Blood Cell (RBC) Count 4.71 mill/uL (4.20-5.40); White Blood Cell (WBC) Count 14.5 thou/uL (4.8-10.8)
[2020-07-07 10:54] LABS: ALT (SGPT) 24 U/L (8-55); AST (SGOT) 33 U/L (5-34); Albumin 4.4 g/dL (3.5-5.0); Alkaline Phosphatase 60 U/L (40-110); Anion Gap 20 mmol/L (10-20); BUN (Urea Nitrogen) 4 mg/dL (7.0-18.7); Calc. Creatinine Clearance 0 mL/min (70-130); Calcium 10.4 mg/dL (7.8-10.44); Carbon Dioxide 24 mmol/L (22-29); Chloride 93 mmol/L (98-107); Glucose 81 mg/dL (70-105); Potassium 3.1 mmol/L (3.5-5.1); Protein, Total 8.4 g/dL (6.0-8.3); Sodium 134 mmol/L (136-145)
[2020-07-07] MEDS ORDERED: Iopamidol-370 76% 500 ML 1 ML ONE (11:05)
[2020-07-07 11:08] LABS: Lipase 1303 U/L (8-78)
[2020-07-07] MEDS ORDERED: Morphine 4 MG/ML VIAL ONE ×2 (11:33→12:36)
[2020-07-07] MEDS ORDERED: Ondansetron PF 4 MG/2 ML Vial ONE (11:33)
[2020-07-07 11:56] LABS: BHCG - Serum Negative (NEGATIVE); Pregs Control Background? CLEAR/WHITE (CLR/WHITE); Pregs Control Bar Appear? YES (CONTROL BAR)
[2020-07-07 15:06] LABS: Bilirubin Negative (Negative); Blood, Urine Negative (Negative); Clarity Clear (Clear); Glucose, Urine (Dipstick) Normal (Negative); Ketone, Urine 100 mg/dL (Negative); Leukocyte Negative Leu/uL (Negative); Nitrite Negative (Negative); Protein, Urine (Dipstick) Negative (Neg-Trace); Urobilinogen Normal mg/dL (Less than 2)
[2020-07-07] MEDS ORDERED: Ondansetron ODT 4 MG TAB PO PRN (15:07)
[2020-07-07 15:25] VITALS: BMI 23.3
[2020-07-07] MEDS ORDERED: Lorazepam 2 MG/ML VIAL SLOW IVP PRN (15:28)
[2020-07-07] MEDS ORDERED: Potassium Chloride 10 MEQ in Premix Bag 1 BAG IVPB SCH (15:30)
[2020-07-07] MEDS: Morphine 4 MG/ML VIAL SLOW IVP PRN ×2 (15:34→20:27)
[2020-07-07] MEDS: Lactated Ringer's 1,000 ML IV SCH ×2 (15:34→20:22)
[2020-07-07] MEDS ORDERED: Diazepam 5 MG TAB PO PRN (15:36)
[2020-07-07] MEDS ORDERED: Potassium Chloride 20 MEQ in Premix Bag 1 BAG IVPB SCH (15:45)
[2020-07-07] MEDS ORDERED: Thiamine HCl 200 MG/2 ML VIAL IM SCH (15:45)
[2020-07-07] MEDS ORDERED: Diazepam 5 MG TAB PO SCH (15:45)
[2020-07-07 21:46] LABS: Anion Gap 20 mmol/L (10-20); BUN (Urea Nitrogen) Less than 4 mg/dL (7.0-18.7); Calc. Creatinine Clearance 138 mL/min (70-130); Calcium 8.5 mg/dL (7.8-10.44); Carbon Dioxide 19 mmol/L (22-29); Chloride 101 mmol/L (98-107); Glucose 71 mg/dL (70-105); Potassium 3.5 mmol/L (3.5-5.1); Sodium 136 mmol/L (136-145)
[2020-07-07 21:48] LABS: SARS-CoV-2 PCR by NAA Not Detected (NotDetected)
[2020-07-08] MEDS ORDERED: hydrALAZINE 20 MG/ML VIAL SLOW IVP PRN (00:38)
[2020-07-08] MEDS ORDERED: hydrALAZINE 20 MG/ML VIAL SLOW IVP SCH (00:45)
[2020-07-08] MEDS: Lactated Ringer's 1,000 ML IV SCH ×5 (01:40→20:55)
[2020-07-08] MEDS: Morphine 4 MG/ML VIAL SLOW IVP PRN ×3 (02:13→23:27)
[2020-07-08] MEDS ORDERED: Diazepam 5 MG TAB PO PRN (04:00)
[2020-07-08 06:58] LABS: #Basophils 0.1 thou/uL (0.0-0.2); #Eosinphils 0.1 thou/uL (0.0-0.7); #Lymphocytes 1.2 thou/uL (1.20-3.40); #Neutrophils 10.4 thou/uL (1.40-6.50); %Basophils 0.5 % (0.0-1.0); %Eosinophils 0.5 % (0.0-10.0); %Lymphocytes 9.7 % (21.0-51.0); %Neutrophils 81.4 % (42.0-75.0); Hemoglobin 12.8 g/dL (12.0-16.0); Mean Corpuscular HGB CONC 31.2 g/dL (32.0-36.0); Mean Corpuscular Hemoglobin 28.9 pg (27.0-31.0); Mean Corpuscular Volume 92.4 fL (78.0-98.0); Mean Platelet Volume 7.3 fL (7.4-10.4); Platelet Count 298 thou/uL (130-400); RBC Distribution Width 15.7 % (11.5-14.5); Red Blood Cell (RBC) Count 4.43 mill/uL (4.20-5.40); White Blood Cell (WBC) Count 12.8 thou/uL (4.8-10.8)
[2020-07-08 07:19] LABS: Anion Gap 19 mmol/L (10-20); BUN (Urea Nitrogen) Less than 4 mg/dL (7.0-18.7); Calc. Creatinine Clearance 145 mL/min (70-130); Calcium 8.5 mg/dL (7.8-10.44); Carbon Dioxide 17 mmol/L (22-29); Chloride 99 mmol/L (98-107); Glucose 62 mg/dL (70-105); Magnesium 1.5 mg/dL (1.6-2.6); Potassium 3.2 mmol/L (3.5-5.1); Sodium 132 mmol/L (136-145)
[2020-07-08] MEDS: Multivitamin W/ Minerals 1 TAB PO SCH (08:56)
[2020-07-08] MEDS: Folic Acid 1 MG TAB PO SCH (08:56)
[2020-07-08] MEDS: Magnesium Oxide 400 MG TAB PO SCH (08:56)
[2020-07-08] MEDS: Thiamine 100 MG TAB PO SCH (08:56)
[2020-07-08] MEDS ORDERED: Acetaminophen 325 MG TAB PO PRN (14:43)
[2020-07-08] MEDS ORDERED: Lisinopril 5 MG TAB PO SCH (19:30)
[2020-07-09] MEDS ORDERED: Morphine 4 MG/ML VIAL SLOW IVP SCH (02:45)
[2020-07-09] MEDS: Morphine 4 MG/ML VIAL SLOW IVP PRN ×3 (04:31→21:07)
[2020-07-09] MEDS: Lactated Ringer's 1,000 ML IV SCH ×6 (04:31→22:00)
[2020-07-09 07:25] LABS: ALT (SGPT) 14 U/L (8-55); AST (SGOT) 21 U/L (5-34); Albumin 3.5 g/dL (3.5-5.0); Alkaline Phosphatase 42 U/L (40-110); Anion Gap 17 mmol/L (10-20); BUN (Urea Nitrogen) Less than 4 mg/dL (7.0-18.7); Bilirubin, Total 0.7 mg/dL (0.2-1.2); Calc. Creatinine Clearance 155 mL/min (70-130); Calcium 8.6 mg/dL (7.8-10.44); Carbon Dioxide 17 mmol/L (22-29); Chloride 102 mmol/L (98-107); Globulin 3.1 g/dL (2.4-3.5); Glucose 60 mg/dL (70-105); Potassium 3.1 mmol/L (3.5-5.1); Protein, Total 6.6 g/dL (6.0-8.3); Sodium 133 mmol/L (136-145)
[2020-07-09 07:58] LABS: #Basophils 0.1 thou/uL (0.0-0.2); #Eosinphils 0.1 thou/uL (0.0-0.7); #Lymphocytes 1.8 thou/uL (1.20-3.40); #Monocytes 1.3 thou/uL (0.11-0.59); #Neutrophils 11.3 thou/uL (1.40-6.50); %Basophils 0.5 % (0.0-1.0); %Eosinophils 0.4 % (0.0-10.0); %Monocytes 9.1 % (0.0-10.0); %Neutrophils 77.9 % (42.0-75.0); Hemoglobin 12.5 g/dL (12.0-16.0); Mean Corpuscular HGB CONC 30.8 g/dL (32.0-36.0); Mean Corpuscular Hemoglobin 28.4 pg (27.0-31.0); Mean Corpuscular Volume 92.4 fL (78.0-98.0); Platelet Count 283 thou/uL (130-400); RBC Distribution Width 16.1 % (11.5-14.5); White Blood Cell (WBC) Count 14.5 thou/uL (4.8-10.8)
[2020-07-09] MEDS: Lisinopril 10 MG TAB PO SCH (08:59)
[2020-07-09] MEDS: FLUoxetine HCl 20 MG CAP PO SCH (08:59)
[2020-07-09] MEDS: Potassium Chloride 20 MEQ in Premix Bag 1 BAG IVPB SCH ×2 (12:42→17:12)
[2020-07-09] MEDS: Magnesium Oxide 400 MG TAB PO SCH (12:46)
[2020-07-09] MEDS: Folic Acid 1 MG TAB PO SCH (12:46)
[2020-07-09] MEDS: Multivitamin W/ Minerals 1 TAB PO SCH (12:46)
[2020-07-09] MEDS: Thiamine 100 MG TAB PO SCH (12:47)
[2020-07-09] MEDS ORDERED: Magnesium 2 GM/50 ML 2 GM in Premix Bag 1 BAG IVPB SCH (13:00)
[2020-07-10] MEDS: Lactated Ringer's 1,000 ML IV SCH ×3 (00:53→10:51)
[2020-07-10 07:36] VITALS: TEMP 97.9
[2020-07-10] MEDS: Magnesium Oxide 400 MG TAB PO SCH (07:41)
[2020-07-10] MEDS: Folic Acid 1 MG TAB PO SCH (07:42)
[2020-07-10] MEDS: Thiamine 100 MG TAB PO SCH (07:42)
[2020-07-10] MEDS: Lisinopril 10 MG TAB PO SCH (07:42)
[2020-07-10] MEDS: Multivitamin W/ Minerals 1 TAB PO SCH (07:42)
[2020-07-10] MEDS: FLUoxetine HCl 20 MG CAP PO SCH (07:42)
[2020-07-10] MEDS ORDERED: Potassium Chloride 20 MEQ TAB PO SCH ×2 (08:00→11:30)
[2020-07-10 08:19] LABS: ALT (SGPT) 12 U/L (8-55); AST (SGOT) 21 U/L (5-34); Albumin 3.7 g/dL (3.5-5.0); Alkaline Phosphatase 45 U/L (40-110); Anion Gap 17 mmol/L (10-20); BUN (Urea Nitrogen) Less than 4 mg/dL (7.0-18.7); Bilirubin, Total 0.7 mg/dL (0.2-1.2); Calc. Creatinine Clearance 147 mL/min (70-130); Calcium 8.9 mg/dL (7.8-10.44); Carbon Dioxide 20 mmol/L (22-29); Chloride 100 mmol/L (98-107); Globulin 3.3 g/dL (2.4-3.5); Glucose 69 mg/dL (70-105); Magnesium 1.5 mg/dL (1.6-2.6); Potassium 3.2 mmol/L (3.5-5.1); Sodium 134 mmol/L (136-145)
[2020-07-10] MEDS ORDERED: Potassium Chloride 20 MEQ in Premix Bag 1 BAG IVPB SCH (11:00)
[2020-07-10 11:29] VITALS: BP 136/93
== END 2020-07-10 15:51 | disposition home or self-care (01) | DRG 439 ==
LOC: ERS 09:47 → T4-A 12:44
PROVIDERS: ADMIT Student in an Organized Health Care Education/Training Program; ATTEND Student in an Organized Health Care Education/Training Program
DX: K85.20 Alcohol induced acute pancreatitis without necrosis or infection (principal); E87.1 Hypo-osmolality and hyponatremia; F32.9 Major depressive disorder, single episode, unspecified; D50.9 Iron deficiency anemia, unspecified; Z98.51 Tubal ligation status; F17.210 Nicotine dependence, cigarettes, uncomplicated; Z82.49 Family history of ischemic heart disease and other diseases of the circulatory system; Z83.3 Family history of diabetes mellitus; Z80.3 Family history of malignant neoplasm of breast; E87.6 Hypokalemia; I10 Essential (primary) hypertension; E83.42 Hypomagnesemia; K59.00 Constipation, unspecified; F10.10 Alcohol abuse, uncomplicated; F41.1 Generalized anxiety disorder
CPT/HCPCS: 36415; 74177; 80048; 80053; 81003; 83690; 83735; 84484; 84703; 85025; 87635; 93005; 96374; 96375; 96376; J0360; J2270; J2405; J3411; J3475; J3480; J3490; Q0162; Q9967; U0003; U0005

== ENCOUNTER 2020-07-12 05:58 | Emergency (ER) | payer OTHER ==
[2020-07-12] MEDS ORDERED: Morphine 4 MG/ML VIAL ONE ×2 (07:02→08:08)
[2020-07-12] MEDS ORDERED: Metoclopramide HCl 10 MG/2 ML VIAL ONE (07:02)
[2020-07-12 07:08] LABS: Hemoglobin 12.9 g/dL (12.0-16.0); Mean Corpuscular HGB CONC 31.5 g/dL (32.0-36.0); Mean Corpuscular Hemoglobin 28.7 pg (27.0-31.0); Mean Corpuscular Volume 91.3 fL (78.0-98.0); Mean Platelet Volume 6.7 fL (7.4-10.4); Platelet Count 404 thou/uL (130-400); RBC Distribution Width 15.9 % (11.5-14.5); Red Blood Cell (RBC) Count 4.48 mill/uL (4.20-5.40); White Blood Cell (WBC) Count 11.7 thou/uL (4.8-10.8)
[2020-07-12 07:26] LABS: ALT (SGPT) 12 U/L (8-55); AST (SGOT) 22 U/L (5-34); Albumin 4.2 g/dL (3.5-5.0); Alkaline Phosphatase 54 U/L (40-110); Anion Gap 16 mmol/L (10-20); BUN (Urea Nitrogen) Less than 4 mg/dL (7.0-18.7); Bilirubin, Total 0.3 mg/dL (0.2-1.2); Calc. Creatinine Clearance 0 mL/min (70-130); Calcium 10.2 mg/dL (7.8-10.44); Carbon Dioxide 27 mmol/L (22-29); Chloride 97 mmol/L (98-107); Glucose 94 mg/dL (70-105); Lipase 452 U/L (8-78); Potassium 3.3 mmol/L (3.5-5.1); Protein, Total 8.2 g/dL (6.0-8.3); Sodium 137 mmol/L (136-145)
[2020-07-12 07:40] LABS: Band 6 % (5-11); Lymphocytes 9 % (21-51); MDiff Complete? YES; Monocytes 4 % (0-10); Neutrophil 81 % (42-75)
[2020-07-12] MEDS ORDERED: Ondansetron PF 4 MG/2 ML Vial ONE (08:08)
== END 2020-07-12 09:15 | disposition home or self-care (01) ==
LOC: ERS 05:58
DX: K85.90 Acute pancreatitis without necrosis or infection, unspecified (principal); D50.9 Iron deficiency anemia, unspecified; R11.0 Nausea; Z79.899 Other long term (current) drug therapy
CPT/HCPCS: 36415; 80053; 83690; 85025; 96374; 96375; 96376; J2270; J2405; J2765

== ENCOUNTER 2020-10-24 14:50 | Observation (INO) | payer OTHER ==
[~2020-10-24 14:50] MED LIST: Iopamidol-370 76% 500 ML 1 ML ONE
[2020-10-24] MEDS ORDERED: Ketorolac Tromethamine 30 MG/ML VIAL ONE (16:58)
[2020-10-24] MEDS ORDERED: Cefepime 1 GM VIAL ONE (16:58)
[2020-10-24] MEDS ORDERED: Ondansetron PF 4 MG/2 ML Vial ONE (16:58)
[2020-10-24 17:15] LABS: Hemoglobin 14.9 g/dL (12.0-16.0); Mean Corpuscular Hemoglobin 28.2 pg (27.0-31.0); Mean Corpuscular Volume 85.7 fL (78.0-98.0); Mean Platelet Volume 7.8 fL (7.4-10.4); Platelet Count 246 thou/uL (130-400); RBC Distribution Width 19.1 % (11.5-14.5); Red Blood Cell (RBC) Count 5.26 mill/uL (4.20-5.40); White Blood Cell (WBC) Count 14.2 thou/uL (4.8-10.8)
[2020-10-24] MEDS ORDERED: Vancomycin HCl 1.5 GM in Sodium Chloride 0.9% 250 ML 300 ML IVPB SCH (17:30)
[2020-10-24 17:39] LABS: ALT (SGPT) 62 U/L (8-55); AST (SGOT) 114 U/L (5-34); Albumin 4.3 g/dL (3.5-5.0); Alkaline Phosphatase 57 U/L (40-110); Anion Gap 18 mmol/L (10-20); BUN (Urea Nitrogen) 17 mg/dL (7.0-18.7); Calc. Creatinine Clearance 0 mL/min (70-130); Calcium 9.8 mg/dL (7.8-10.44); Carbon Dioxide 19 mmol/L (22-29); Chloride 97 mmol/L (98-107); Globulin 4.5 g/dL (2.4-3.5); Glucose 106 mg/dL (70-105); Potassium 3.4 mmol/L (3.5-5.1); Protein, Total 8.8 g/dL (6.0-8.3); Sodium 131 mmol/L (136-145)
[2020-10-24 18:11] LABS: #Basophils 0.1 thou/uL (0.0-0.2); #Lymphocytes 1.2 thou/uL (1.20-3.40); #Monocytes 1.3 thou/uL (0.11-0.59); #Neutrophils 11.6 thou/uL (1.40-6.50); %Basophils 0.4 % (0.0-1.0); %Eosinophils 0.1 % (0.0-10.0); %Lymphocytes 8.8 % (21.0-51.0); %Monocytes 8.8 % (0.0-10.0); Platelet Morphology Comment Appears Adequate; RBC Morphology Normal
[2020-10-24] MEDS ORDERED: Ondansetron PF 4 MG/2 ML Vial IVP PRN (23:01)
[2020-10-24 23:12] LABS: Troponin I Less than 0.010 ng/mL (< 0.028)
[2020-10-24] MEDS ORDERED: Potassium Chloride 20 MEQ in Premix Bag 1 BAG IVPB SCH (23:59)
[2020-10-25 00:20] LABS: SARS-CoV-2 NAA Rapid Test Not Detected (NotDetected)
[2020-10-25 01:03] VITALS: BMI 22.8
[2020-10-25 01:06] LABS: Cholesterol 147 mg/dl (< 200 Desired); HDL Cholesterol 37 mg/dL (>60 Neg Risk); LDL Cholesterol, Calculated 92 mg/dL; Magnesium 1.8 mg/dL (1.6-2.6); Triglycerides 90 mg/dL (Less than 150)
[2020-10-25 01:07] LABS: Phosphorus 1.5 mg/dL (2.3-4.7)
[2020-10-25 01:26] LABS: HBCM Index 0.07 S/CO (0-0.79); Hep A IgM AB Non-Reactive (NonReactive); Hep A IgM S/CO 0.15 S/CO (0-0.79); Hep B Surf Ag Non-Reactive S/CO (NonReactive); Hep C IgG Ab Non-Reactive (NonReactive); Hep C Index 0.16 S/CO (0-0.79); Hepatitis B Core IgM Abs Non-Reactive (NonReactive)
[2020-10-25] MEDS ORDERED: Potassium Phosphate 22 MMOL in Sodium Chloride 0.9% 250 ML 250 ML IVPB SCH (01:30)
[2020-10-25] MEDS: Morphine 2 MG/ML VIAL SLOW IVP PRN ×3 (01:42→10:33)
[2020-10-25] MEDS: Lactated Ringer's 1,000 ML IV SCH ×5 (01:43→22:10)
[2020-10-25 04:20] LABS: #Lymphocytes 1.3 thou/uL (1.20-3.40); #Neutrophils 8.2 thou/uL (1.40-6.50); %Basophils 0.1 % (0.0-1.0); %Eosinophils 0.1 % (0.0-10.0); %Lymphocytes 12.2 % (21.0-51.0); %Monocytes 9.8 % (0.0-10.0); %Neutrophils 77.9 % (42.0-75.0); Hemoglobin 12.1 g/dL (12.0-16.0); Mean Corpuscular HGB CONC 32.1 g/dL (32.0-36.0); Mean Corpuscular Hemoglobin 27.8 pg (27.0-31.0); Mean Corpuscular Volume 86.6 fL (78.0-98.0); Mean Platelet Volume 7.7 fL (7.4-10.4); Platelet Count 188 thou/uL (130-400); RBC Distribution Width 18.9 % (11.5-14.5); Red Blood Cell (RBC) Count 4.35 mill/uL (4.20-5.40); White Blood Cell (WBC) Count 10.5 thou/uL (4.8-10.8)
[2020-10-25 04:37] LABS: ALT (SGPT) 53 U/L (8-55); AST (SGOT) 102 U/L (5-34); Albumin 3.4 g/dL (3.5-5.0); Alkaline Phosphatase 43 U/L (40-110); Anion Gap 16 mmol/L (10-20); BUN (Urea Nitrogen) 14 mg/dL (7.0-18.7); Bilirubin, Total 0.9 mg/dL (0.2-1.2); Calc. Creatinine Clearance 95 mL/min (70-130); Calcium 8.4 mg/dL (7.8-10.44); Carbon Dioxide 19 mmol/L (22-29); Chloride 103 mmol/L (98-107); Globulin 3.2 g/dL (2.4-3.5); Glucose 82 mg/dL (70-105); Potassium 3.3 mmol/L (3.5-5.1); Protein, Total 6.6 g/dL (6.0-8.3); Sodium 135 mmol/L (136-145)
[2020-10-25] MEDS ORDERED: Potassium Chloride 20 MEQ in Premix Bag 1 BAG IVPB SCH (06:00)
[2020-10-25] MEDS ORDERED: Magnesium 2 GM/50 ML 1 GM in Premix Bag 1 BAG IVPB SCH (10:45)
[2020-10-25 11:10] LABS: Pregnancy Test - Urine (BHCG) Negative (Negative); Pregu Control Background? CLEAR/WHITE (CLR/WHITE); Pregu Control Bar Appear? YES (CONTROL BAR); Specific Gravity 1.057 (1.002-1.036)
[2020-10-25 11:17] LABS: Amphetamine Not Detected (NotDetected); Barbiturates Screen Not Detected (NotDetected); Benzodiazepine Screen Not Detected (NotDetected); Cocaine Metabolite Screen Not Detected (NotDetected); Methadone Not Detected (NotDetected); Methamphetamine Not Detected (NotDetected); Opiate Screen Detected (NotDetected); Oxycodone Screen Not Detected (NotDetected); Phencyclidine (PCP) Not Detected (NotDetected); THC/Cannabinoid Screen Detected (NotDetected); Tricyclic Screen Detected (NotDetected)
[2020-10-25 11:18] LABS: RBC/HPF Greater than 50 HPF (0-3); Squamous Epithelial 0-3 HPF (0-3)
[2020-10-25 11:19] LABS: Bacteria/HPF Rare-Few HPF (None Seen)
[2020-10-25] MEDS: Morphine 4 MG/ML VIAL SLOW IVP PRN ×2 (15:23→20:44)
[2020-10-26] MEDS: Morphine 4 MG/ML VIAL SLOW IVP PRN ×2 (01:00→05:08)
[2020-10-26 04:28] LABS: #Basophils 0.1 thou/uL (0.0-0.2); #Lymphocytes 1.5 thou/uL (1.20-3.40); #Neutrophils 6.1 thou/uL (1.40-6.50); %Basophils 0.8 % (0.0-1.0); %Eosinophils 0.4 % (0.0-10.0); %Neutrophils 70.8 % (42.0-75.0); Hemoglobin 11.1 g/dL (12.0-16.0); Mean Corpuscular HGB CONC 31.9 g/dL (32.0-36.0); Mean Corpuscular Hemoglobin 27.7 pg (27.0-31.0); Mean Corpuscular Volume 86.7 fL (78.0-98.0); Mean Platelet Volume 7.9 fL (7.4-10.4); Platelet Count 162 thou/uL (130-400); RBC Distribution Width 18.4 % (11.5-14.5); White Blood Cell (WBC) Count 8.7 thou/uL (4.8-10.8)
[2020-10-26] MEDS: Lactated Ringer's 1,000 ML IV SCH ×2 (04:29→15:08)
[2020-10-26 04:49] LABS: ALT (SGPT) 47 U/L (8-55); AST (SGOT) 84 U/L (5-34); Albumin 2.9 g/dL (3.5-5.0); Alkaline Phosphatase 39 U/L (40-110); Anion Gap 15 mmol/L (10-20); BUN (Urea Nitrogen) Less than 4 mg/dL (7.0-18.7); Bilirubin, Total 0.9 mg/dL (0.2-1.2); Calc. Creatinine Clearance 123 mL/min (70-130); Calcium 8.1 mg/dL (7.8-10.44); Carbon Dioxide 21 mmol/L (22-29); Chloride 100 mmol/L (98-107); Globulin 2.9 g/dL (2.4-3.5); Glucose 63 mg/dL (70-105); Magnesium 1.7 mg/dL (1.6-2.6); Protein, Total 5.8 g/dL (6.0-8.3); Sodium 133 mmol/L (136-145)
[2020-10-26 05:00] LABS: Phosphorus 1.6 mg/dL (2.3-4.7); Potassium 2.8 mmol/L (3.5-5.1)
[2020-10-26] MEDS ORDERED: Potassium Chloride 20 MEQ in Premix Bag 1 BAG IVPB SCH (05:15)
[2020-10-26] MEDS ORDERED: Potassium Phosphate 9 MMOL in Sodium Chloride 0.9% 100 ML IVPB SCH ×2 (07:30→18:15)
[2020-10-26] MEDS ORDERED: PHOS-NAK 1 PKT PACK PO ONE (07:49)
[2020-10-26] MEDS ORDERED: Potassium Citrate 10 MEQ TAB PO SCH (08:00)
[2020-10-26 08:18] LABS: Anion Gap 15 mmol/L (10-20); BUN (Urea Nitrogen) Less than 4 mg/dL (7.0-18.7); Calc. Creatinine Clearance 127 mL/min (70-130); Calcium 8.4 mg/dL (7.8-10.44); Carbon Dioxide 21 mmol/L (22-29); Chloride 100 mmol/L (98-107); Potassium 3.1 mmol/L (3.5-5.1); Sodium 133 mmol/L (136-145)
[2020-10-26 08:21] LABS: Glucose 58 mg/dL (70-105)
[2020-10-26] MEDS ORDERED: Ibuprofen 200 MG TAB PO PRN ×2 (08:30→12:10)
[2020-10-26 13:47] LABS: Anion Gap 15 mmol/L (10-20); BUN (Urea Nitrogen) Less than 4 mg/dL (7.0-18.7); Calc. Creatinine Clearance 112 mL/min (70-130); Calcium 9.4 mg/dL (7.8-10.44); Carbon Dioxide 25 mmol/L (22-29); Chloride 97 mmol/L (98-107); Glucose 94 mg/dL (70-105); Sodium 134 mmol/L (136-145)
[2020-10-26 13:56] LABS: Potassium 2.9 mmol/L (3.5-5.1)
[2020-10-26] MEDS: Potassium Chloride 20 MEQ in Premix Bag 1 BAG IVPB SCH ×2 (15:08→18:26)
[2020-10-26 17:39] LABS: Magnesium 1.8 mg/dL (1.6-2.6)
[2020-10-26 17:43] LABS: Phosphorus 1.2 mg/dL (2.3-4.7)
[2020-10-26] MEDS ORDERED: Polyethylene Glycol 3350 17 GM Packet PO PRN (17:47)
[2020-10-26] MEDS: Morphine 2 MG/ML VIAL SLOW IVP PRN (17:49)
[2020-10-26 22:33] LABS: Anion Gap 13 mmol/L (10-20); BUN (Urea Nitrogen) Less than 4 mg/dL (7.0-18.7); Calc. Creatinine Clearance 121 mL/min (70-130); Calcium 9.2 mg/dL (7.8-10.44); Carbon Dioxide 23 mmol/L (22-29); Chloride 101 mmol/L (98-107); Glucose 100 mg/dL (70-105); Sodium 134 mmol/L (136-145)
[2020-10-26 22:35] LABS: Potassium 2.9 mmol/L (3.5-5.1)
[2020-10-26] MEDS ORDERED: Potassium Chloride 20 MEQ TAB PO SCH (23:15)
[2020-10-27] MEDS: Lactated Ringer's 1,000 ML IV SCH ×3 (00:06→11:22)
[2020-10-27] MEDS: Morphine 2 MG/ML VIAL SLOW IVP PRN ×2 (00:07→05:36)
[2020-10-27 04:52] LABS: #Lymphocytes 2.3 thou/uL (1.20-3.40); #Monocytes 1.1 thou/uL (0.11-0.59); #Neutrophils 4.2 thou/uL (1.40-6.50); %Basophils 0.4 % (0.0-1.0); %Eosinophils 0.6 % (0.0-10.0); %Lymphocytes 29.6 % (21.0-51.0); %Monocytes 14.1 % (0.0-10.0); %Neutrophils 55.2 % (42.0-75.0); Hemoglobin 11.4 g/dL (12.0-16.0); Mean Corpuscular HGB CONC 31.7 g/dL (32.0-36.0); Mean Corpuscular Hemoglobin 27.5 pg (27.0-31.0); Mean Corpuscular Volume 86.5 fL (78.0-98.0); Mean Platelet Volume 7.9 fL (7.4-10.4); Platelet Count 203 thou/uL (130-400); RBC Distribution Width 18.7 % (11.5-14.5); Red Blood Cell (RBC) Count 4.15 mill/uL (4.20-5.40); White Blood Cell (WBC) Count 7.6 thou/uL (4.8-10.8)
[2020-10-27 04:58] LABS: Phosphorus 2.7 mg/dL (2.3-4.7)
[2020-10-27 05:00] LABS: ALT (SGPT) 53 U/L (8-55); AST (SGOT) 103 U/L (5-34); Albumin 3.2 g/dL (3.5-5.0); Alkaline Phosphatase 44 U/L (40-110); Anion Gap 14 mmol/L (10-20); BUN (Urea Nitrogen) Less than 4 mg/dL (7.0-18.7); Bilirubin, Total 0.9 mg/dL (0.2-1.2); Calc. Creatinine Clearance 142 mL/min (70-130); Calcium 8.7 mg/dL (7.8-10.44); Carbon Dioxide 26 mmol/L (22-29); Chloride 99 mmol/L (98-107); Globulin 3.1 g/dL (2.4-3.5); Glucose 83 mg/dL (70-105); Magnesium 1.7 mg/dL (1.6-2.6); Potassium 3.6 mmol/L (3.5-5.1); Protein, Total 6.3 g/dL (6.0-8.3); Sodium 135 mmol/L (136-145)
[2020-10-27 05:16] LABS: Thyroid Stimulating Hormone 4.1674 uIU/mL (0.35-4.94); Vitamin D, 25 Hydroxy 4.7 ng/ml (> 30.0)
[2020-10-27] MEDS ORDERED: Morphine 2 MG/ML VIAL SLOW IVP PRN ×2 (09:38→09:40)
[2020-10-27] MEDS: Ibuprofen 200 MG TAB PO SCH ×2 (10:35→14:45)
[2020-10-27 16:34] VITALS: BP 157/104; TEMP 97.5
[2020-10-28] MEDS ORDERED: Folic Acid 1 MG TAB PO SCH (09:00)
[2020-10-28] MEDS ORDERED: Thiamine 100 MG TAB PO SCH (09:00)
== END 2020-10-27 17:15 | disposition home or self-care (01) ==
LOC: ERS 14:50 → INTOOBSV 21:36 → 2NO 21:36
PROVIDERS: ADMIT Student in an Organized Health Care Education/Training Program; ATTEND Student in an Organized Health Care Education/Training Program
DX: K85.20 Alcohol induced acute pancreatitis without necrosis or infection (principal); F31.9 Bipolar disorder, unspecified; F41.1 Generalized anxiety disorder; F12.10 Cannabis abuse, uncomplicated; K70.10 Alcoholic hepatitis without ascites; F10.10 Alcohol abuse, uncomplicated; R74.01 Elevation of levels of liver transaminase levels; N17.9 Acute kidney failure, unspecified; K76.0 Fatty (change of) liver, not elsewhere classified; M54.9 Dorsalgia, unspecified; J98.2 Interstitial emphysema; E87.1 Hypo-osmolality and hyponatremia; E87.6 Hypokalemia; E87.8 Other disorders of electrolyte and fluid balance, not elsewhere classified; E83.39 Other disorders of phosphorus metabolism; E43 Unspecified severe protein-calorie malnutrition; Z68.22 Body mass index [BMI] 22.0-22.9, adult; Z79.899 Other long term (current) drug therapy; Z20.822 Contact with and (suspected) exposure to COVID-19; Y90.0 Blood alcohol level of less than 20 mg/100 ml
CPT/HCPCS: 36415; 36416; 71045; 71275; 76705; 80053; 80061; 80074; 80306; 80307; 81015; 81025; 82306; 83605; 83690; 83735; 84100; 84443; 84484; 85025; 87040; 93005; 96365; 96366; 96367; 96375; J0692; J1885; J2270; J2405; J3370; J3475; J3480; J3490; J7050; J7120; Q9967; U0002

== ENCOUNTER 2021-10-05 11:44 | Inpatient (IN) | payer OTHER ==
[~2021-10-05 11:44] MED LIST changes: +Iopamidol 370 76% 100 ML VIAL ONE; -Iopamidol-370 76% 500 ML 1 ML ONE
[2021-10-05 12:28] LABS: #Basophils 0.1 thou/uL (0.0-0.2); #Lymphocytes 1.6 thou/uL (1.20-3.40); #Monocytes 0.8 thou/uL (0.11-0.59); #Neutrophils 4.4 thou/uL (1.40-6.50); %Basophils 1.6 % (0.0-1.0); %Eosinophils 0.1 % (0.0-10.0); %Lymphocytes 23.4 % (21.0-51.0); %Monocytes 11.3 % (0.0-10.0); %Neutrophils 63.6 % (42.0-75.0); Hemoglobin 14.1 g/dL (12.0-16.0); Mean Corpuscular HGB CONC 31.1 g/dL (32.0-36.0); Mean Corpuscular Hemoglobin 26.9 pg (27.0-31.0); Mean Corpuscular Volume 86.4 fL (78.0-98.0); Mean Platelet Volume 7.9 fL (7.4-10.4); Platelet Count 234 thou/uL (130-400); RBC Distribution Width 17.7 % (11.5-14.5); Red Blood Cell (RBC) Count 5.26 mill/uL (4.20-5.40); White Blood Cell (WBC) Count 6.9 thou/uL (4.8-10.8)
[2021-10-05 12:57] LABS: ALT (SGPT) 92 U/L (8-55); AST (SGOT) 169 U/L (5-34); Albumin 5.3 g/dL (3.5-5.0); Alkaline Phosphatase 64 U/L (40-110); Anion Gap 34 mmol/L (10-20); BUN (Urea Nitrogen) 10 mg/dL (7.0-18.7); Bilirubin, Total 0.3 mg/dL (0.2-1.2); Calc. Creatinine Clearance 0 mL/min (70-130); Calcium 9.7 mg/dL (7.8-10.44); Chloride 95 mmol/L (98-107); Estimated GFR 65; Glucose 75 mg/dL (70-105); Potassium 3.5 mmol/L (3.5-5.1); Protein, Total 10.3 g/dL (6.0-8.3); Sodium 133 mmol/L (136-145)
[2021-10-05 13:02] LABS: Carbon Dioxide 8 mmol/L (22-29)
[2021-10-05 13:19] LABS: BHCG - Serum Negative (NEGATIVE); Pregs Control Background? CLEAR/WHITE (CLR/WHITE); Pregs Control Bar Appear? YES (CONTROL BAR)
[2021-10-05] MEDS ORDERED: Acetaminophen/Codeine 30-300mg Tablet ONE (15:49)
[2021-10-05] MEDS ORDERED: Ketorolac Tromethamine 30 MG/ML VIAL ONE (16:08)
[2021-10-05] MEDS ORDERED: Aspirin Chewable 81 MG TAB ONE ×2 (17:34→17:35)
[2021-10-05] MEDS ORDERED: Ondansetron ODT 4 MG TAB PO PRN (18:48)
[2021-10-05] MEDS ORDERED: Acetaminophen 325 MG TAB PO PRN (18:48)
[2021-10-05] MEDS ORDERED: hydrOXYzine 25 MG TAB PO PRN (19:17)
[2021-10-05] MEDS ORDERED: hydrOXYzine 25 MG TAB ONE ×2 (19:25)
[2021-10-05] MEDS ORDERED: Ondansetron PF 4 MG/2 ML Vial ONE (19:28)
[2021-10-05] MEDS: Ondansetron PF 4 MG/2 ML Vial IVP PRN (19:31)
[2021-10-05 19:40] LABS: SARS-CoV-2 NAA Rapid Test DETECTED (NotDetected)
[2021-10-05] MEDS ORDERED: Methocarbamol 500 MG TAB PO PRN (20:12)
[2021-10-05] MEDS ORDERED: Fentanyl 100 MCG/2 ML VIAL SLOW IVP PRN (20:15)
[2021-10-05] MEDS ORDERED: Carvedilol 6.25 MG TAB PO SCH (20:15)
[2021-10-05] MEDS ORDERED: Lactated Ringer's 1,000 ML IV SCH (20:15)
[2021-10-05] MEDS ORDERED: hydrALAZINE 20 MG/ML VIAL SLOW IVP PRN (20:16)
[2021-10-05] MEDS ORDERED: HYDROcodone/Acetaminophen 5/325 mg Tablet ONE (20:24)
[2021-10-05] MEDS: HYDROcodone/Acetaminophen 5/325 mg Tablet PO PRN (20:30)
[2021-10-05] MEDS: Lactated Ringer's 1,000 ML IV SCH (23:44)
[2021-10-06 01:03] VITALS: BMI 19.8
[2021-10-06 04:07] LABS: Hemoglobin 12.1 g/dL (12.0-16.0); Mean Corpuscular HGB CONC 31.6 g/dL (32.0-36.0); Mean Corpuscular Hemoglobin 26.9 pg (27.0-31.0); Mean Corpuscular Volume 85.1 fL (78.0-98.0); Mean Platelet Volume 8.5 fL (7.4-10.4); Platelet Count 209 thou/uL (130-400); RBC Distribution Width 17.1 % (11.5-14.5); Red Blood Cell (RBC) Count 4.49 mill/uL (4.20-5.40); White Blood Cell (WBC) Count 5.7 thou/uL (4.8-10.8)
[2021-10-06] MEDS: HYDROcodone/Acetaminophen 5/325 mg Tablet PO PRN (04:10)
[2021-10-06 04:33] LABS: Band 2 % (5-11); Lymphocytes 26 % (21-51); MDiff Complete? YES; Monocytes 8 % (0-10); Neutrophil 64 % (42-75); Nucleated RBC 1 % (0)
[2021-10-06 04:41] LABS: AST (SGOT) 89 U/L (5-34); Albumin 4.1 g/dL (3.5-5.0); Anion Gap 25 mmol/L (10-20); BUN (Urea Nitrogen) 9 mg/dL (7.0-18.7); Bilirubin, Total 0.2 mg/dL (0.2-1.2); Calc. Creatinine Clearance 70 mL/min (70-130); Chloride 102 mmol/L (98-107); Estimated GFR 76; Glucose 66 mg/dL (70-105); Potassium 3.8 mmol/L (3.5-5.1); Protein, Total 8.1 g/dL (6.0-8.3); Sodium 132 mmol/L (136-145)
[2021-10-06 04:58] LABS: Carbon Dioxide 9 mmol/L (22-29)
[2021-10-06 05:03] LABS: Alkaline Phosphatase 47 U/L (40-110)
[2021-10-06 05:06] LABS: ALT (SGPT) 57 U/L (8-55)
[2021-10-06] MEDS ORDERED: Dexamethasone 4 MG TAB PO SCH (08:00)
[2021-10-06] MEDS: Enoxaparin Sodium 40 MG/0.4 ML SYRINGE SC SCH ×2 (08:20→11:16)
[2021-10-06] MEDS: Lactated Ringer's 1,000 ML IV SCH ×2 (08:21→16:19)
[2021-10-06] MEDS: Dexamethasone 4 MG TAB PO SCH (08:21)
[2021-10-06] MEDS: Aspirin 325 MG TAB PO SCH (08:21)
[2021-10-06] MEDS: Carvedilol 6.25 MG TAB PO SCH ×2 (08:24→16:19)
[2021-10-06] MEDS ORDERED: REMDESIVIR 200 MG in Sodium Chloride 0.9% 250 ML 210 ML IV SCH (10:00)
[2021-10-06 10:59] LABS: PTT 31.4 sec (22.9-36.1); Prothrombin Time 13.4 sec (12.0-14.7)
[2021-10-06] MEDS ORDERED: Losartan 25 MG TAB PO SCH (12:30)
[2021-10-06] MEDS ORDERED: hydrALAZINE 20 MG/ML VIAL SLOW IVP PRN (12:48)
[2021-10-06] MEDS: Ondansetron PF 4 MG/2 ML Vial IVP PRN (14:09)
[2021-10-06] MEDS: Labetalol HCl 100 MG/20 ML VIAL SLOW IVP PRN ×2 (16:19→18:14)
[2021-10-07] MEDS: Lactated Ringer's 1,000 ML IV SCH (03:21)
[2021-10-07] MEDS: HYDROcodone/Acetaminophen 5/325 mg Tablet PO PRN (03:30)
[2021-10-07 06:00] LABS: ALT (SGPT) 37 U/L (8-55); AST (SGOT) 40 U/L (5-34); Albumin 3.9 g/dL (3.5-5.0); Alkaline Phosphatase 39 U/L (40-110); Anion Gap 19 mmol/L (10-20); BUN (Urea Nitrogen) 4 mg/dL (7.0-18.7); Bilirubin, Total 0.4 mg/dL (0.2-1.2); Calc. Creatinine Clearance 90 mL/min (70-130); Calcium 9.1 mg/dL (7.8-10.44); Carbon Dioxide 14 mmol/L (22-29); Chloride 103 mmol/L (98-107); Estimated GFR 104; Globulin 3.2 g/dL (2.4-3.5); Glucose 98 mg/dL (70-105); Potassium 3.5 mmol/L (3.5-5.1); Protein, Total 7.1 g/dL (6.0-8.3); Sodium 132 mmol/L (136-145)
[2021-10-07 06:46] LABS: Band 3 % (5-11); Hemoglobin 11.2 g/dL (12.0-16.0); Lymphocytes 27 % (21-51); MDiff Complete? YES; Mean Corpuscular HGB CONC 32.1 g/dL (32.0-36.0); Mean Corpuscular Volume 84.1 fL (78.0-98.0); Mean Platelet Volume 8.5 fL (7.4-10.4); Monocytes 15 % (0-10); Neutrophil 55 % (42-75); Platelet Count 197 thou/uL (130-400); RBC Distribution Width 17.1 % (11.5-14.5); Red Blood Cell (RBC) Count 4.15 mill/uL (4.20-5.40); White Blood Cell (WBC) Count 5.3 thou/uL (4.8-10.8)
[2021-10-07] MEDS ORDERED: Lactated Ringer's 1,000 ML IV SCH (08:15)
[2021-10-07 08:25] VITALS: BP 122/78; TEMP 97
[2021-10-07] MEDS: Aspirin 325 MG TAB PO SCH (08:30)
[2021-10-07] MEDS: Dexamethasone 4 MG TAB PO SCH (08:30)
[2021-10-07] MEDS: Carvedilol 6.25 MG TAB PO SCH (08:31)
[2021-10-07] MEDS: Enoxaparin Sodium 40 MG/0.4 ML SYRINGE SC SCH (08:31)
[2021-10-07] MEDS ORDERED: REMDESIVIR 100 MG in Sodium Chloride 0.9% 250 ML 230 ML IV SCH (09:00)
[2021-10-07] MEDS ORDERED: Losartan 25 MG TAB PO SCH ×2 (09:00→11:00)
== END 2021-10-07 11:45 | disposition home or self-care (01) | DRG 177 ==
LOC: ERS 11:44 → ERHOLD 17:43 → OBSVTOIN 18:48 → IMCU/EMU 10-06 00:48 → 2SW 10-06 21:50
PROVIDERS: ADMIT Family Medicine; ATTEND Family Medicine
PROC: 8E0ZXY6 Isolation (ICD-10-PCS; principal; 2021-10-05)
DX: U07.1 COVID-19 (principal); I77.79 Dissection of other specified artery; J96.01 Acute respiratory failure with hypoxia; N17.9 Acute kidney failure, unspecified; E87.1 Hypo-osmolality and hyponatremia; K86.0 Alcohol-induced chronic pancreatitis; I10 Essential (primary) hypertension; F10.10 Alcohol abuse, uncomplicated; F31.9 Bipolar disorder, unspecified; F17.210 Nicotine dependence, cigarettes, uncomplicated; R74.01 Elevation of levels of liver transaminase levels; F41.1 Generalized anxiety disorder; F41.0 Panic disorder [episodic paroxysmal anxiety]; E86.0 Dehydration; M54.50 Low back pain, unspecified; F12.10 Cannabis abuse, uncomplicated; Z79.899 Other long term (current) drug therapy; Z79.82 Long term (current) use of aspirin; Z98.51 Tubal ligation status; Z28.310 Unvaccinated for COVID-19
CPT/HCPCS: 36415; 36416; 71045; 71275; 80053; 83605; 83615; 83690; 83880; 84145; 84484; 84703; 85025; 85610; 85730; 86140; 87040; 93005; 96374; J0360; J1650; J1885; J2405; J7120; J8540; Q9967; U0002

== ENCOUNTER 2022-02-17 15:18 | Inpatient (IN) | payer OTHER ==
[2022-02-17 15:54] LABS: #Lymphocytes 1.4 thou/uL (1.20-3.40); #Monocytes 1.3 thou/uL (0.11-0.59); #Neutrophils 14.2 thou/uL (1.40-6.50); %Basophils 0.2 % (0.0-1.0); %Lymphocytes 8.1 % (21.0-51.0); %Monocytes 7.4 % (0.0-10.0); %Neutrophils 84.3 % (42.0-75.0); Hemoglobin 14.1 g/dL (12.0-16.0); Mean Corpuscular HGB CONC 32.1 g/dL (32.0-36.0); Mean Corpuscular Hemoglobin 27.6 pg (27.0-31.0); Platelet Count 303 10x3/uL (130-400); RBC Distribution Width 15.4 % (11.5-14.5); Red Blood Cell (RBC) Count 5.09 mill/uL (4.20-5.40); White Blood Cell (WBC) Count 16.9 10x3/uL (4.8-10.8)
[2022-02-17 16:00] LABS: BHCG - Serum Negative (NEGATIVE)
[2022-02-17 16:01] LABS: Pregs Control Background? CLEAR/WHITE (CLR/WHITE); Pregs Control Bar Appear? YES (CONTROL BAR)
[2022-02-17 16:15] LABS: ALT (SGPT) 51 U/L (8-55); AST (SGOT) 65 U/L (5-34); Albumin 5.5 g/dL (3.5-5.0); Alkaline Phosphatase 70 U/L (40-110); BUN (Urea Nitrogen) 16 mg/dL (7.0-18.7); Bilirubin, Total 1.7 mg/dL (0.2-1.2); Calc. Creatinine Clearance 0 mL/min (70-130); Calcium 10.4 mg/dL (7.8-10.44); Chloride 91 mmol/L (98-107); Estimated GFR 47; Globulin 4.8 g/dL (2.4-3.5); Glucose 94 mg/dL (70-105); Potassium 3.8 mmol/L (3.5-5.1); Protein, Total 10.3 g/dL (6.0-8.3); Sodium 133 mmol/L (136-145)
[2022-02-17 16:19] LABS: Carbon Dioxide Less than 8 mmol/L (22-29)
[2022-02-17] MEDS ORDERED: Ondansetron PF 4 MG/2 ML Vial ONE (17:34)
[2022-02-17] MEDS ORDERED: Morphine 4 MG/ML VIAL ONE ×2 (17:34→21:32)
[2022-02-17 18:04] LABS: Acetaminophen Less than 10.0 mcg/mL (10.0-30.0); Alcohol Less than 10 mg/dL (Less than 10); Salicylate Less than 8.0 mg/dL (15.0-30.0)
[2022-02-17 19:26] LABS: Bacteria/HPF None Seen HPF (None Seen); Bilirubin 1+ (Negative); Blood, Urine Trace (Negative); Clarity Clear (Clear); Glucose, Urine (Dipstick) Normal (Negative); Ketone, Urine Greater than 150 mg/dL (Negative); Leukocyte Negative Leu/uL (Negative); Nitrite Negative (Negative); Protein, Urine (Dipstick) 300 mg/dL (Neg-Trace); RBC/HPF 0-3 HPF (0-3); Specific Gravity, Urine 1.024 (1.002-1.036); Squamous Epithelial 0-3 HPF (0-3); Urobilinogen 3 mg/dL (Less than 2); WBC/HPF 0-3 HPF (0-3)
[2022-02-17 19:32] LABS: Amphetamine Not Detected (NotDetected); Barbiturates Screen Not Detected (NotDetected); Benzodiazepine Screen Not Detected (NotDetected); Cocaine Metabolite Screen Not Detected (NotDetected); Methadone Not Detected (NotDetected); Methamphetamine Not Detected (NotDetected); Opiate Screen Detected (NotDetected); Oxycodone Screen Not Detected (NotDetected); Phencyclidine (PCP) Not Detected (NotDetected); THC/Cannabinoid Screen Detected (NotDetected); Tricyclic Screen Not Detected (NotDetected)
[2022-02-17] MEDS ORDERED: Lactated Ringer's 1,000 ML IV SCH ×2 (19:45→23:45)
[2022-02-17] MEDS ORDERED: Ondansetron PF 4 MG/2 ML Vial IVP PRN (19:53)
[2022-02-17] MEDS ORDERED: Morphine 2 MG/ML VIAL SLOW IVP PRN (19:53)
[2022-02-17] MEDS ORDERED: Morphine 4 MG/ML VIAL SLOW IVP PRN (20:00)
[2022-02-17 20:17] LABS: Analyzer IN Cardio ER; Base Excess (BEa) -15.3 mEq/L (-2.0 to +3.0); Calcium, Ionized (arterial) 1.21 mmol/L (1.12-1.30); Carboxyhemoglobin (COHb) 0.6 gm% (0.0-3.0); Hemoglobin (Hb) 13.5 g/dL (12.0-16.0); O2 Tension (PaO2), arterial 122.6 mmHg (80.0-100.0); Potassium - ABG Lab 3.81 mmol/L (3.70-5.30); pH, Arterial 7.32 (7.35-7.45)
[2022-02-17 20:25] LABS: ALV-art Gradient 6.755 mmHg (0-20); Actual Bicarbonate (HCO3a) 8.2 mEq/L (22-28); CO2 Tension 16.3 mmHg (35.0-45.0); Puncture Site LRA
[2022-02-17] MEDS ORDERED: Electrolyte Replacement Protocol 1 EACH FS SCH (21:00)
[2022-02-17 21:27] VITALS: BMI 24.1
[2022-02-17] MEDS ORDERED: Multivit, Therapeutic 1 TAB PO SCH (21:30)
[2022-02-17] MEDS ORDERED: Folic Acid 1 MG TAB PO SCH (21:30)
[2022-02-17] MEDS: Morphine 4 MG/ML VIAL SLOW IVP PRN (21:50)
[2022-02-17 21:57] LABS: Magnesium 1.9 mg/dL (1.6-2.6); Phosphorus 3.9 mg/dL (2.3-4.7)
[2022-02-17 21:57] LABS: Cardiac Risk 2.7 (Less than 4.5)
[2022-02-17] MEDS ORDERED: Thiamine HCl 200 MG/2 ML VIAL SLOW IVP SCH (22:00)
[2022-02-17] MEDS ORDERED: Folic Acid 1 MG TAB ONE (22:42)
[2022-02-18] MEDS ORDERED: Lactated Ringer's 1,000 ML IV SCH (00:45)
[2022-02-18] MEDS ORDERED: Morphine 4 MG/ML VIAL ONE ×3 (01:21→09:25)
[2022-02-18] MEDS: Morphine 4 MG/ML VIAL SLOW IVP PRN ×5 (01:22→19:54)
[2022-02-18] MEDS: Dextrose 5%-Lactated Ringers 1,000 ML IV SCH ×3 (03:53→18:25)
[2022-02-18 05:54] LABS: #Lymphocytes 1.1 thou/uL (1.20-3.40); #Monocytes 1.1 thou/uL (0.11-0.59); #Neutrophils 10.6 thou/uL (1.40-6.50); %Basophils 0.3 % (0.0-1.0); %Eosinophils 0.1 % (0.0-10.0); %Lymphocytes 8.3 % (21.0-51.0); %Monocytes 8.5 % (0.0-10.0); %Neutrophils 82.8 % (42.0-75.0); Hemoglobin 12.1 g/dL (12.0-16.0); Mean Corpuscular HGB CONC 31.7 g/dL (32.0-36.0); Mean Corpuscular Hemoglobin 27.4 pg (27.0-31.0); Mean Corpuscular Volume 86.3 fl (78.0-98.0); Mean Platelet Volume 7.7 fL (7.4-10.4); Platelet Count 217 10x3/uL (130-400); RBC Distribution Width 15.2 % (11.5-14.5); Red Blood Cell (RBC) Count 4.41 mill/uL (4.20-5.40); White Blood Cell (WBC) Count 12.8 10x3/uL (4.8-10.8)
[2022-02-18 06:04] LABS: PTT 28.7 sec (22.9-36.1); Prothrombin Time 13.9 sec (12.0-14.7)
[2022-02-18 06:26] LABS: ALT (SGPT) 34 U/L (8-55); AST (SGOT) 39 U/L (5-34); Albumin 4.3 g/dL (3.5-5.0); Alkaline Phosphatase 52 U/L (40-110); Anion Gap 19 mmol/L (10-20); BUN (Urea Nitrogen) 10 mg/dL (7.0-18.7); Bilirubin, Total 1.3 mg/dL (0.2-1.2); Calc. Creatinine Clearance 88 mL/min (70-130); Calcium 9.4 mg/dL (7.8-10.44); Carbon Dioxide 16 mmol/L (22-29); Chloride 99 mmol/L (98-107); Estimated GFR 79; Globulin 3.6 g/dL (2.4-3.5); Glucose 138 mg/dL (70-105); Potassium 3.8 mmol/L (3.5-5.1); Protein, Total 7.9 g/dL (6.0-8.3); Sodium 130 mmol/L (136-145)
[2022-02-18] MEDS ORDERED: Morphine 4 MG/ML VIAL SLOW IVP PRN (07:50)
[2022-02-18] MEDS ORDERED: Folic Acid 1 MG TAB ONE (09:26)
[2022-02-18] MEDS ORDERED: Aspirin Chewable 81 MG TAB ONE (09:26)
[2022-02-18] MEDS: Folic Acid 1 MG TAB PO SCH (09:42)
[2022-02-18] MEDS: Losartan 25 MG TAB PO SCH (09:42)
[2022-02-18] MEDS: Multivit, Therapeutic 1 TAB PO SCH (09:42)
[2022-02-18] MEDS: Carvedilol 6.25 MG TAB PO SCH ×2 (09:42→16:09)
[2022-02-18] MEDS: Aspirin 81 mg Enteric Coated Tablet PO SCH (09:42)
[2022-02-18] MEDS: Sertraline 25 MG TAB PO SCH (11:24)
[2022-02-18] MEDS ORDERED: Dextrose 5%-Lactated Ringers 1,000 ML IV SCH (19:00)
[2022-02-19] MEDS ORDERED: Bisacodyl 10 MG SUPP PR SCH (01:30)
[2022-02-19] MEDS ORDERED: Bisacodyl 5 MG TAB PO SCH (02:00)
[2022-02-19] MEDS: Morphine 4 MG/ML VIAL SLOW IVP PRN ×2 (02:03→08:40)
[2022-02-19 04:43] LABS: #Eosinphils 0.1 thou/uL (0.0-0.7); #Lymphocytes 1.2 thou/uL (1.20-3.40); %Basophils 0.1 % (0.0-1.0); %Eosinophils 0.7 % (0.0-10.0); %Lymphocytes 13.3 % (21.0-51.0); %Monocytes 10.6 % (0.0-10.0); %Neutrophils 75.2 % (42.0-75.0); Hemoglobin 10.6 g/dL (12.0-16.0); Mean Corpuscular HGB CONC 31.4 g/dL (32.0-36.0); Mean Corpuscular Hemoglobin 27.4 pg (27.0-31.0); Mean Corpuscular Volume 87.3 fl (78.0-98.0); Mean Platelet Volume 7.9 fL (7.4-10.4); Platelet Count 216 10x3/uL (130-400); RBC Distribution Width 15.1 % (11.5-14.5); Red Blood Cell (RBC) Count 3.85 mill/uL (4.20-5.40); White Blood Cell (WBC) Count 9.3 10x3/uL (4.8-10.8)
[2022-02-19 05:00] LABS: ALT (SGPT) 19 U/L (8-55); AST (SGOT) 28 U/L (5-34); Albumin 3.7 g/dL (3.5-5.0); Alkaline Phosphatase 41 U/L (40-110); Anion Gap 11 mmol/L (10-20); BUN (Urea Nitrogen) Less than 4 mg/dL (7.0-18.7); Calc. Creatinine Clearance 125 mL/min (70-130); Calcium 9.2 mg/dL (7.8-10.44); Carbon Dioxide 24 mmol/L (22-29); Chloride 100 mmol/L (98-107); Estimated GFR 121; Globulin 2.8 g/dL (2.4-3.5); Glucose 85 mg/dL (70-105); Protein, Total 6.5 g/dL (6.0-8.3); Sodium 132 mmol/L (136-145)
[2022-02-19] MEDS ORDERED: Potassium Chloride 20 MEQ TAB PO SCH (08:00)
[2022-02-19] MEDS: Folic Acid 1 MG TAB PO SCH (08:35)
[2022-02-19] MEDS: Losartan 25 MG TAB PO SCH (08:35)
[2022-02-19] MEDS: Multivit, Therapeutic 1 TAB PO SCH (08:35)
[2022-02-19] MEDS: Aspirin 81 mg Enteric Coated Tablet PO SCH (08:35)
[2022-02-19] MEDS: Carvedilol 6.25 MG TAB PO SCH ×2 (08:35→16:20)
[2022-02-19] MEDS: Sertraline 25 MG TAB PO SCH (08:35)
[2022-02-19] MEDS: Lactated Ringer's 1,000 ML IV SCH ×3 (08:40→22:35)
[2022-02-19] MEDS ORDERED: Polyethylene Glycol 3350 17 GM Packet PO SCH (09:00)
[2022-02-19] MEDS ORDERED: HYDROcodone/Acetaminophen 5/325 mg Tablet PO SCH ×2 (14:00→17:25)
[2022-02-19] MEDS ORDERED: Morphine 2 MG/ML VIAL SLOW IVP PRN (17:25)
[2022-02-19] MEDS ORDERED: Morphine 4 MG/ML VIAL SLOW IVP SCH ×2 (17:45→20:15)
[2022-02-19] MEDS: HYDROcodone/Acetaminophen 5/325 mg Tablet PO SCH (22:33)
[2022-02-20] MEDS ORDERED: Morphine 4 MG/ML VIAL SLOW IVP SCH (04:00)
[2022-02-20 04:35] LABS: #Monocytes 0.9 thou/uL (0.11-0.59); #Neutrophils 4.6 thou/uL (1.40-6.50); %Basophils 0.6 % (0.0-1.0); %Eosinophils 0.6 % (0.0-10.0); %Lymphocytes 25.9 % (21.0-51.0); %Monocytes 11.4 % (0.0-10.0); %Neutrophils 61.5 % (42.0-75.0); Hemoglobin 10.6 g/dL (12.0-16.0); Mean Corpuscular HGB CONC 32.6 g/dL (32.0-36.0); Mean Corpuscular Hemoglobin 28.1 pg (27.0-31.0); Mean Corpuscular Volume 86.4 fl (78.0-98.0); Mean Platelet Volume 8.2 fL (7.4-10.4); Platelet Count 221 10x3/uL (130-400); Red Blood Cell (RBC) Count 3.76 mill/uL (4.20-5.40); White Blood Cell (WBC) Count 7.5 10x3/uL (4.8-10.8)
[2022-02-20 05:01] LABS: ALT (SGPT) 23 U/L (8-55); AST (SGOT) 37 U/L (5-34); Albumin 3.7 g/dL (3.5-5.0); Alkaline Phosphatase 42 U/L (40-110); Anion Gap 15 mmol/L (10-20); BUN (Urea Nitrogen) Less than 4 mg/dL (7.0-18.7); Bilirubin, Total 0.8 mg/dL (0.2-1.2); Calc. Creatinine Clearance 172 mL/min (70-130); Calcium 9.5 mg/dL (7.8-10.44); Carbon Dioxide 23 mmol/L (22-29); Chloride 99 mmol/L (98-107); Estimated GFR 131; Globulin 3.4 g/dL (2.4-3.5); Glucose 82 mg/dL (70-105); Potassium 3.2 mmol/L (3.5-5.1); Protein, Total 7.1 g/dL (6.0-8.3); Sodium 134 mmol/L (136-145)
[2022-02-20] MEDS ORDERED: Potassium Chloride 20 MEQ TAB PO SCH (06:00)
[2022-02-20] MEDS: HYDROcodone/Acetaminophen 5/325 mg Tablet PO SCH ×3 (06:15→21:30)
[2022-02-20] MEDS: Lactated Ringer's 1,000 ML IV SCH ×2 (06:16→21:31)
[2022-02-20] MEDS ORDERED: Carvedilol 6.25 MG TAB PO SCH ×3 (08:55→17:00)
[2022-02-20] MEDS: Sertraline 25 MG TAB PO SCH (09:40)
[2022-02-20] MEDS: Aspirin 81 mg Enteric Coated Tablet PO SCH (09:40)
[2022-02-20] MEDS: Multivit, Therapeutic 1 TAB PO SCH (09:40)
[2022-02-20] MEDS: Losartan 25 MG TAB PO SCH (09:40)
[2022-02-20] MEDS: Folic Acid 1 MG TAB PO SCH (09:40)
[2022-02-20] MEDS: Carvedilol 6.25 MG TAB PO SCH (09:53)
[2022-02-20] MEDS ORDERED: Simethicone Chewable 80 MG TAB PO PRN (13:40)
[2022-02-20] MEDS ORDERED: Thiamine 100 MG TAB PO SCH (21:00)
[2022-02-21 03:47] VITALS: TEMP 98.6
[2022-02-21 04:33] VITALS: BP 141/87
[2022-02-21 05:18] LABS: ALT (SGPT) 17 U/L (8-55); AST (SGOT) 36 U/L (5-34); Albumin 3.9 g/dL (3.5-5.0); Alkaline Phosphatase 40 U/L (40-110); Anion Gap 12 mmol/L (10-20); BUN (Urea Nitrogen) Less than 4 mg/dL (7.0-18.7); Bilirubin, Total 0.5 mg/dL (0.2-1.2); Calc. Creatinine Clearance 151 mL/min (70-130); Calcium 9.5 mg/dL (7.8-10.44); Carbon Dioxide 30 mmol/L (22-29); Chloride 98 mmol/L (98-107); Estimated GFR 128; Glucose 87 mg/dL (70-105); Potassium 2.8 mmol/L (3.5-5.1); Protein, Total 6.9 g/dL (6.0-8.3); Sodium 137 mmol/L (136-145)
[2022-02-21 05:22] LABS: Hemoglobin 10.3 g/dL (12.0-16.0); Mean Corpuscular HGB CONC 31.9 g/dL (32.0-36.0); Mean Corpuscular Hemoglobin 27.6 pg (27.0-31.0); Mean Corpuscular Volume 86.5 fl (78.0-98.0); Mean Platelet Volume 8.1 fL (7.4-10.4); Platelet Count 230 10x3/uL (130-400); RBC Distribution Width 15.7 % (11.5-14.5); Red Blood Cell (RBC) Count 3.74 mill/uL (4.20-5.40); White Blood Cell (WBC) Count 6.8 10x3/uL (4.8-10.8)
[2022-02-21 06:00] LABS: Lymphocytes 24 % (21-51); MDiff Complete? YES; Monocytes 14 % (0-10); Neutrophil 62 % (42-75)
[2022-02-21] MEDS ORDERED: FLU VACC QS2022-23(6MOS UP)/PF 60 MCG/0.5 ML SYRINGE IM ONE (16:00)
== END 2022-02-21 05:51 | disposition left against medical advice (07) | DRG 682 ==
LOC: ERS 15:18 → ERHOLD 18:55 → OBSVTOIN 02-18 08:35 → 2NO 02-18 13:40
PROVIDERS: ADMIT Emergency Medicine; ATTEND Emergency Medicine
DX: N17.9 Acute kidney failure, unspecified (principal); K85.20 Alcohol induced acute pancreatitis without necrosis or infection; E87.20 Acidosis, unspecified; E87.3 Alkalosis; E87.1 Hypo-osmolality and hyponatremia; I10 Essential (primary) hypertension; F31.9 Bipolar disorder, unspecified; F17.210 Nicotine dependence, cigarettes, uncomplicated; E86.0 Dehydration; F41.9 Anxiety disorder, unspecified; K59.00 Constipation, unspecified; Z20.822 Contact with and (suspected) exposure to COVID-19; Z79.82 Long term (current) use of aspirin; Z79.899 Other long term (current) drug therapy; Z98.890 Other specified postprocedural states; Z98.51 Tubal ligation status
CPT/HCPCS: 36415; 36600; 71045; 74176; 80053; 80061; 80306; 80307; 81003; 81015; 82010; 82248; 82570; 82805; 83605; 83690; 83735; 83930; 83935; 84100; 84300; 84703; 85025; 85610; 85730; 87086; 94760; 96361; 96372; 96374; 96375; G0378; J2270; J2405; J3411; J7120; U0003; U0005

== ENCOUNTER 2023-01-16 13:12 | Inpatient (IN) | payer OTHER, SELFPAY ==
[~2023-01-16 13:12] MED LIST changes: -Iopamidol 370 76% 100 ML VIAL ONE; +Iopamidol-370 76% 500 ML MDV (1 ML CHARGE) ONE
[2023-01-16 13:40] LABS: #Monocytes 0.7 thou/uL (0.11-0.59); #Neutrophils 9.9 thou/uL (1.40-6.50); %Basophils 0.3 % (0.0-1.0); %Eosinophils 0.1 % (0.0-10.0); %Lymphocytes 12.5 % (21.0-51.0); %Monocytes 5.9 % (0.0-10.0); %Neutrophils 80.5 % (42.0-75.0); Hematocrit 46.4 % (36.0-47.0); Hemoglobin 15.5 g/dL (12.0-16.0); Mean Corpuscular HGB CONC 33.4 g/dL (32.0-36.0); Mean Corpuscular Hemoglobin 28.1 pg (27.0-31.0); Mean Corpuscular Volume 84.1 fl (78.0-98.0); Mean Platelet Volume 9.7 fL (7.4-10.4); Platelet Count 239 10x3/uL (130-400); Red Blood Cell (RBC) Count 5.52 mill/uL (4.20-5.40); White Blood Cell (WBC) Count 12.3 10x3/uL (4.8-10.8)
[2023-01-16] MEDS ORDERED: Ketorolac Tromethamine 30 MG/ML VIAL ONE (13:43)
[2023-01-16] MEDS ORDERED: Morphine 4 MG/ML VIAL ONE (13:43)
[2023-01-16] MEDS ORDERED: Ondansetron PF 4 MG/2 ML Vial ONE (13:43)
[2023-01-16 13:54] LABS: BHCG - Serum Negative (NEGATIVE); Pregs Control Background? CLEAR/WHITE (CLR/WHITE); Pregs Control Bar Appear? YES (CONTROL BAR)
[2023-01-16 14:41] LABS: ALT (SGPT) 23 U/L (8-55); AST (SGOT) 46 U/L (5-34); Albumin 4.6 g/dL (3.5-5.0); Alkaline Phosphatase 49 U/L (40-110); Anion Gap 32 mmol/L (10-20); BUN (Urea Nitrogen) 17 mg/dL (7.0-18.7); Bilirubin, Total 0.9 mg/dL (0.2-1.2); Calc. Creatinine Clearance 0 mL/min (70-130); Calcium 9.4 mg/dL (7.8-10.44); Carbon Dioxide 11 mmol/L (22-29); Chloride 88 mmol/L (98-107); Estimated GFR 51; Globulin 4.3 g/dL (2.4-3.5); Glucose 90 mg/dL (70-105); Lipase 442 U/L (8-78); Potassium 3.4 mmol/L (3.5-5.1); Protein, Total 8.9 g/dL (6.0-8.3); Sodium 128 mmol/L (136-145)
[2023-01-16] MEDS ORDERED: HYDROmorphone 0.5 MG/0.5 ML SYRINGE ONE (16:10)
[2023-01-16 16:51] LABS: Bacteria/HPF None Seen HPF (None Seen); Bilirubin Negative (Negative); Blood, Urine 3+ (Negative); CAUTI Indications for Culture Pelvic or flank pain; Clarity Clear (Clear); Glucose, Urine (Dipstick) Normal (Negative); Ketone, Urine Greater than 150 mg/dL (Negative); Leukocyte Negative Leu/uL (Negative); Nitrite Negative (Negative); Protein, Urine (Dipstick) 30 mg/dL (Neg-Trace); Squamous Epithelial 0-3 HPF (0-3); Urine Culture Reflex No No; Urobilinogen Normal mg/dL (Less than 2); WBC/HPF 0-3 HPF (0-3)
[2023-01-16] MEDS ORDERED: hydrOXYzine 10 MG TAB PO PRN (17:29)
[2023-01-16] MEDS ORDERED: Ondansetron ODT 4 MG TAB PO PRN (17:31)
[2023-01-16] MEDS ORDERED: Acetaminophen 325 MG TAB PO PRN (17:32)
[2023-01-16 17:42] VITALS: BMI 23.3
[2023-01-16] MEDS: Potassium Chloride 20 MEQ in Premix 1 BAG IVPB SCH ×2 (18:18→21:25)
[2023-01-16] MEDS: Lactated Ringer's 1,000 ML IV SCH (18:19)
[2023-01-16 21:00] LABS: Magnesium 1.5 mg/dL (1.6-2.6)
[2023-01-16 21:03] LABS: Anion Gap 23 mmol/L (10-20); BUN (Urea Nitrogen) 12 mg/dL (7.0-18.7); Calc. Creatinine Clearance 74 mL/min (70-130); Calcium 8.6 mg/dL (7.8-10.44); Carbon Dioxide 16 mmol/L (22-29); Chloride 97 mmol/L (98-107); Estimated GFR 68; Glucose 66 mg/dL (70-105); Potassium 3.1 mmol/L (3.5-5.1); Sodium 133 mmol/L (136-145)
[2023-01-16] MEDS: Famotidine/PF 20 mg/2ml Vial SLOW IVP SCH (21:24)
[2023-01-16] MEDS: Morphine 4 MG/ML VIAL SLOW IVP PRN (23:20)
[2023-01-16] MEDS: Ondansetron PF 4 MG/2 ML Vial IVP PRN (23:20)
[2023-01-17] MEDS: Lactated Ringer's 1,000 ML IV SCH (04:05)
[2023-01-17] MEDS: Morphine 4 MG/ML VIAL SLOW IVP PRN ×2 (05:38→13:09)
[2023-01-17] MEDS: Ondansetron PF 4 MG/2 ML Vial IVP PRN (05:38)
[2023-01-17 07:17] LABS: #Monocytes 0.6 thou/uL (0.11-0.59); #Neutrophils 5.5 thou/uL (1.40-6.50); %Basophils 0.1 % (0.0-1.0); %Eosinophils 0.3 % (0.0-10.0); %Lymphocytes 19.5 % (21.0-51.0); %Monocytes 7.9 % (0.0-10.0); %Neutrophils 71.7 % (42.0-75.0); Mean Corpuscular HGB CONC 32.1 g/dL (32.0-36.0); Mean Corpuscular Hemoglobin 28.4 pg (27.0-31.0); Platelet Count 177 10x3/uL (130-400); Red Blood Cell (RBC) Count 3.84 mill/uL (4.20-5.40); White Blood Cell (WBC) Count 7.6 10x3/uL (4.8-10.8)
[2023-01-17 07:52] LABS: ALT (SGPT) 21 U/L (8-55); AST (SGOT) 49 U/L (5-34); Albumin 3.8 g/dL (3.5-5.0); Alkaline Phosphatase 40 U/L (40-110); Anion Gap 22 mmol/L (10-20); BUN (Urea Nitrogen) 8 mg/dL (7.0-18.7); Bilirubin, Total 0.9 mg/dL (0.2-1.2); Calc. Creatinine Clearance 87 mL/min (70-130); Calcium 8.7 mg/dL (7.8-10.44); Carbon Dioxide 20 mmol/L (22-29); Chloride 98 mmol/L (98-107); Estimated GFR 83; Globulin 3.7 g/dL (2.4-3.5); Glucose 66 mg/dL (70-105); Potassium 2.9 mmol/L (3.5-5.1); Protein, Total 7.5 g/dL (6.0-8.3); Sodium 137 mmol/L (136-145)
[2023-01-17 08:09] LABS: Hemoglobin 10.9 g/dL (12.0-16.0); Mean Corpuscular Volume 88.5 fl (78.0-98.0)
[2023-01-17] MEDS: Famotidine/PF 20 mg/2ml Vial SLOW IVP SCH ×2 (08:49→19:56)
[2023-01-17] MEDS: FLUoxetine HCl 20 MG CAP PO SCH (08:49)
[2023-01-17] MEDS ORDERED: Potassium Chloride 20 MEQ TAB PO SCH ×2 (09:00→13:00)
[2023-01-17] MEDS ORDERED: Acetaminophen 325 MG TAB PO SCH (09:00)
[2023-01-17] MEDS ORDERED: Dextrose 5%-Lactated Ringers 1,000 ML IV SCH (09:00)
[2023-01-17] MEDS: Potassium Chloride 20 MEQ in Premix 1 BAG IVPB SCH ×2 (09:18→13:08)
[2023-01-17] MEDS: Ketorolac Tromethamine 30 MG/ML VIAL IVP PRN ×2 (09:18→21:31)
[2023-01-17] MEDS ORDERED: Magnesium 2 GM/50 ML(in water) 2 GM in Premix 1 BAG IVPB SCH (11:00)
[2023-01-17] MEDS: Acetaminophen 325 MG TAB PO PRN ×2 (13:09→21:32)
[2023-01-17 18:35] LABS: #Monocytes 0.6 thou/uL (0.11-0.59); %Basophils 0.3 % (0.0-1.0); %Eosinophils 0.4 % (0.0-10.0); %Lymphocytes 20.2 % (21.0-51.0); %Monocytes 8.6 % (0.0-10.0); %Neutrophils 69.9 % (42.0-75.0); Hematocrit 34.4 % (36.0-47.0); Hemoglobin 11.3 g/dL (12.0-16.0); Mean Corpuscular HGB CONC 32.8 g/dL (32.0-36.0); Mean Corpuscular Hemoglobin 28.3 pg (27.0-31.0); Mean Platelet Volume 9.6 fL (7.4-10.4); Platelet Count 194 10x3/uL (130-400); RBC Distribution Width 18.6 % (11.5-14.5); White Blood Cell (WBC) Count 7.2 10x3/uL (4.8-10.8)
[2023-01-17] MEDS: hydrALAZINE 25 MG TAB PO PRN (18:39)
[2023-01-17 18:57] LABS: Anion Gap 17 mmol/L (10-20); BUN (Urea Nitrogen) 4 mg/dL (7.0-18.7); Calc. Creatinine Clearance 98 mL/min (70-130); Calcium 9.5 mg/dL (7.8-10.44); Carbon Dioxide 25 mmol/L (22-29); Chloride 97 mmol/L (98-107); Estimated GFR 94; Glucose 88 mg/dL (70-105); Magnesium 2.2 mg/dL (1.6-2.6); Potassium 3.1 mmol/L (3.5-5.1); Sodium 136 mmol/L (136-145)
[2023-01-18] MEDS: hydrALAZINE 25 MG TAB PO PRN (01:52)
[2023-01-18] MEDS: Morphine 4 MG/ML VIAL SLOW IVP PRN (01:54)
[2023-01-18 07:20] LABS: ALT (SGPT) 26 U/L (8-55); AST (SGOT) 51 U/L (5-34); Albumin 3.8 g/dL (3.5-5.0); Alkaline Phosphatase 37 U/L (40-110); Anion Gap 14 mmol/L (10-20); BUN (Urea Nitrogen) Less than 4 mg/dL (7.0-18.7); Bilirubin, Total 0.7 mg/dL (0.2-1.2); Calc. Creatinine Clearance 100 mL/min (70-130); Calcium 9.3 mg/dL (7.8-10.44); Carbon Dioxide 29 mmol/L (22-29); Chloride 96 mmol/L (98-107); Estimated GFR 97; Glucose 88 mg/dL (70-105); Protein, Total 6.8 g/dL (6.0-8.3); Sodium 136 mmol/L (136-145)
[2023-01-18 07:49] LABS: Potassium 2.6 mmol/L (3.5-5.1)
[2023-01-18] MEDS ORDERED: Potassium Chloride 20 MEQ TAB PO SCH ×3 (08:00→17:15)
[2023-01-18] MEDS: Famotidine/PF 20 mg/2ml Vial SLOW IVP SCH (08:31)
[2023-01-18] MEDS: FLUoxetine HCl 20 MG CAP PO SCH (08:31)
[2023-01-18] MEDS ORDERED: Amlodipine 5 MG TAB PO SCH (11:00)
[2023-01-18] MEDS ORDERED: Iopamidol-370 76% 500 ML MDV (1 ML CHARGE) ONE (13:36)
[2023-01-18 17:11] LABS: Anion Gap 16 mmol/L (10-20); BUN (Urea Nitrogen) Less than 4 mg/dL (7.0-18.7); Calc. Creatinine Clearance 101 mL/min (70-130); Calcium 10.3 mg/dL (7.8-10.44); Carbon Dioxide 28 mmol/L (22-29); Chloride 94 mmol/L (98-107); Estimated GFR 98; Glucose 108 mg/dL (70-105); Sodium 135 mmol/L (136-145)
[2023-01-18 18:15] VITALS: BP 140/97; TEMP 98.5
[2023-01-19] MEDS ORDERED: Amlodipine 5 MG TAB PO SCH (09:00)
== END 2023-01-18 18:41 | disposition home or self-care (01) | DRG 439 ==
LOC: ERS 13:12 → T4-A 15:59
PROVIDERS: ADMIT Family Medicine; ATTEND Family Medicine
DX: K85.90 Acute pancreatitis without necrosis or infection, unspecified (principal); E87.1 Hypo-osmolality and hyponatremia; N17.9 Acute kidney failure, unspecified; E87.20 Acidosis, unspecified; M54.9 Dorsalgia, unspecified; M62.830 Muscle spasm of back; F41.9 Anxiety disorder, unspecified; F31.9 Bipolar disorder, unspecified; F10.90 Alcohol use, unspecified, uncomplicated; F12.90 Cannabis use, unspecified, uncomplicated; E16.2 Hypoglycemia, unspecified; E87.6 Hypokalemia; I10 Essential (primary) hypertension; Z71.6 Tobacco abuse counseling; Z68.23 Body mass index [BMI] 23.0-23.9, adult; Z79.899 Other long term (current) drug therapy; Z98.890 Other specified postprocedural states; Z98.51 Tubal ligation status; Z82.49 Family history of ischemic heart disease and other diseases of the circulatory system; Z71.51 Drug abuse counseling and surveillance of drug abuser
CPT/HCPCS: 36415; 36416; 74175; 74177; 80053; 81001; 83690; 83735; 84478; 84703; 85025; 96361; 96374; 96375; J1170; J1885; J2270; J2405; J3475; J3480; J7120; Q9967; S0028